=== PATIENT | male | born 1945 | race Caucasian/White ===

== ENCOUNTER 2023-03-13 05:01 | Outpatient (REF) | payer OTHER, SELFPAY ==
[2023-03-13 07:33] LABS: Creatinine Urine 157.35 mg/dL; Microalbum/Creatinine Ratio Ur 357.1 ug/mg cr (<30)
== END 2023-03-13 05:02 | disposition home or self-care (01) ==
LOC: HO.HSH2W 05:01
PROVIDERS: Visit Provider Internal Medicine
DX: E11.22 Type 2 diabetes mellitus with diabetic chronic kidney disease (principal); I12.9 Hypertensive chronic kidney disease with stage 1 through stage 4 chronic kidney disease, or unspecified chronic kidney disease; N18.30 Chronic kidney disease, stage 3 unspecified
CPT/HCPCS: 82043; 82570

== ENCOUNTER 2023-03-25 11:35 | Outpatient (AMB) | payer MEDICARE, MEDICAID, SELFPAY ==
--- NOTE | 2023-03-25 11:33 | A.OFFVIS_ITS ---
Intake Intake Visit Reasons: Urinary retention Intake Note: Patient presents today for a follow-up on Urinary Retention: Meds- Tamsulosin Allergies to Antibiotic- No Known Allergies Blood Thinner- None Clinical Account Specialist Required: No Accompanied by: Self / Same As Patient Allergies No Known Allergies Allergy (Verified 03/25/23 11:48) HPI HPI Comments History of Present Illness Details Immanuel is a 77 year old male new resident to [place] [facility], h/o Dementia, COPD, depression, with ponce catheter for urinary retention 11/2022. The catheter was changed here on 03/22/23 and he is on clamp system. Nursing state he complains when the valve is in the clamped position. Plan: Cont Flomax Voiding trial with [place] catheter [facility] Medical History (Updated 04/03/23 @ 11:04 by Melly Vickers MD) Cataract COVID-19 Microalbuminuria Chronic kidney disease, stage 3 History of failure to thrive syndrome Second degree AV block Behavior disturbance Pulmonary nodules COPD (chronic obstructive pulmonary disease) Gout Diabetes mellitus HTN (hypertension) Urinary retention Dementia Alzheimer disease Social History Alcohol intake: former Patient Tobacco Use Status: Former Tobacco user Review of Systems Const All systems reviewed & are unremarkable except as noted in HPI and below Reports no additional complaints Eyes Reports no additional complaints ENT Reports no additional complaints Card Denies dyspnea Resp Denies cough and Denies dyspnea GI Reports no additional complaints Musc Reports no additional complaints Skin/Breast Denies rash and Denies unusual bruising Neuro Reports no additional complaints Psych Reports no additional complaints Endo Reports no additional complaints Irvin/Lymph Reports no additional complaints Aller/Immun Reports no additional complaints Physical Exam Const General: healthy appearing, no acute distress and well developed Orientation/consciousness: patient oriented x3 HEENT Head: Yes normocephalic and Yes atraumatic Eyes Conjunctivae: conjunctivae normal Neck Neck: Yes normal visual inspection Chest Chest palpation & inspection: normal inspection of the chest Resp Effort & Inspection: normal respiratory effort Cardio Rate: regular rate GI Inspection: Yes normal to inspection Palpation (GI): Soft to palpation Other: ponce in place penile glans no breakdown noted Penis: normal penis Scrotum: scrotum normal Skin General skin exam: no rashes or lesions noted Neuro General: patient oriented x3 Extrem General: No pedal edema Psych Appearance: grossly normal Affect: normal affect Assessment & Plan Assessment & Plan (1) BPH loc w urin obs/LUTS: Code(s): N40.1 - Benign prostatic hyperplasia with lower urinary tract symptoms (2) Ponce catheter in place: Code(s): Z97.8 - Presence of other specified devices (3) Urinary retention: Code(s): R33.9 - Retention of urine, unspecified Coding Level of Care Code [id number] Fac initial, mod Diagnoses BPH loc w urin obs/LUTS N40.[address] Z97.8 Urinary retention R33.9
== END 2023-03-25 16:30 | disposition home or self-care (01) ==
LOC: HO.HUSV 11:35
PROVIDERS: Visit Provider Urology
DX: N40.1 Benign prostatic hyperplasia with lower urinary tract symptoms (principal); Z97.8 Presence of other specified devices; R33.9 Retention of urine, unspecified
CPT/HCPCS: 99305

== ENCOUNTER 2023-04-28 05:04 | Outpatient (REF) | payer MEDICARE, MEDICAID, SELFPAY ==
[2023-04-28 06:44] LABS: MANUAL DIFF FLAG NO
[2023-04-28 06:50] LABS: Basophils Percent Auto 0.6 % (0-2); Eosinophils Absolute Auto 0.2 X10*3/uL (0.0-0.4); Eosinophils Percent Auto 2.8 % (0-4); Hematocrit 31.5 % (42.0-52.0); Hemoglobin 9.9 g/dl (14.0-18.0); Imm Gran Abs Auto 0.12 X10*3/uL (0.00-0.03); Imm Gran Pct Auto 1.7 % (0.0-0.4); Lymphocytes Absolute Auto 1.3 X10*3/uL (1.2-4.9); Lymphocytes Percent Auto 18.6 % (20-40); Mean Corpuscular HGB Conc 31.4 g/dl (31.0-36.0); Mean Corpuscular Hemoglobin 27.7 pg (27.0-33.0); Mean Platelet Volume 10.3 fL (9.4-12.4); Monocytes Absolute Auto 0.6 X10*3/uL (0.1-1.2); Monocytes Percent Auto 8.8 % (2-11); Neutrophils Absolute Auto 4.8 x10*3/uL (2.0-8.3); Neutrophils Percent Auto 67.5 % (45-73); Platelet Count 210 X10*3/uL (160-400); Red Blood Count 3.58 X10*6/uL (4.60-5.80); Red Cell Distribution Width 15.4 % (11.0-16.0); White Blood Count 7.2 X10*3/uL (4.8-10.8)
[2023-04-28 07:13] LABS: Alanine Aminotransferase 9 U/L (0-40); Albumin Level 2.8 g/dL (3.5-5.0); Alkaline Phosphatase 88 U/L (39-117); Anion Gap 10 (12-20); Aspartate Amino Transferase 14 U/L (5-37); Bilirubin Total 0.4 mg/dL (0.0-1.0); Blood Urea Nitrogen 14 mg/dL (9-16); Calcium 8.7 mg/dL (8.4-10.2); Carbon Dioxide 28 mmol/L (22-29); Chloride 107 mmol/L (96-108); Estimated Glomerular Filt Rate > 60; Glucose Fasting 88 mg/dL (60-99); Potassium 3.6 mmol/L (3.3-5.1); Sodium 141 mmol/L (135-145); Total Protein 5.5 g/dL (6.5-8.0); Uric Acid 5.1 mg/dL (3.4-7.0)
[2023-04-28 07:28] LABS: Thyroid Stimulating Hormone 2.64 uIU/mL (0.32-4.0); Vitamin D 25-OH Total 21.5 ng/mL (>30)
[2023-04-28 07:30] LABS: Estimated Average Glucose 117 mg/dL; Hemoglobin A1c % 5.7 % (<6.0)
[2023-04-28 07:43] LABS: Folate 8.9 ng/mL (> or = 4.0); Vitamin B12 562 pg/mL (200-900)
[2023-04-28 12:52] LABS: Ferritin 158 ng/mL (20-250)
[2023-04-30 16:19] LABS: TS Negative Control Passed; TS Panel A 2; TS Panel B 0; TS Positive Control Passed; TSpotTB Negative (Negative)
== END 2023-04-28 05:05 | disposition home or self-care (01) ==
LOC: HO.HSH2W 05:04
PROVIDERS: Visit Provider Internal Medicine
DX: E11.22 Type 2 diabetes mellitus with diabetic chronic kidney disease (principal); I12.9 Hypertensive chronic kidney disease with stage 1 through stage 4 chronic kidney disease, or unspecified chronic kidney disease; D63.1 Anemia in chronic kidney disease; N18.30 Chronic kidney disease, stage 3 unspecified; F03.90 Unspecified dementia, unspecified severity, without behavioral disturbance, psychotic disturbance, mood disturbance, and anxiety; M10.9 Gout, unspecified
CPT/HCPCS: 36415; 80053; 82306; 82607; 82728; 82746; 83036; 84443; 84550; 85025; 86481

== ENCOUNTER 2023-05-04 05:01 | Outpatient (REF) | payer OTHER, SELFPAY | END 2023-05-04 05:02 | disposition home or self-care (01) | LOC: HO.HSH2W 05:01 | PROVIDERS: Visit Provider Internal Medicine | DX: Z13.89 Encounter for screening for other disorder (principal) ==

== ENCOUNTER 2023-05-29 05:21 | Outpatient (REF) | payer OTHER, SELFPAY | END 2023-05-29 05:22 | disposition home or self-care (01) | LOC: HO.HSH2W 05:21 | PROVIDERS: Visit Provider Internal Medicine | DX: Z13.89 Encounter for screening for other disorder (principal) ==

== ENCOUNTER 2023-06-25 04:55 | Outpatient (REF) | payer MEDICARE, MEDICAID, SELFPAY ==
[2023-06-25 06:03] LABS: Anion Gap 11 (12-20); Blood Urea Nitrogen 32 mg/dL (9-16); Calcium 9.3 mg/dL (8.4-10.2); Carbon Dioxide 26 mmol/L (22-29); Chloride 106 mmol/L (96-108); Estimated Glomerular Filt Rate 52; Glucose Fasting 93 mg/dL (60-99); Magnesium 2.1 mg/dL (1.6-2.6); Potassium 3.9 mmol/L (3.3-5.1); Sodium 139 mmol/L (135-145)
== END 2023-06-25 04:56 | disposition home or self-care (01) ==
LOC: HO.HSH2W 04:55
PROVIDERS: Visit Provider Internal Medicine
DX: I10 Essential (primary) hypertension (principal)
CPT/HCPCS: 36415; 80048; 83735

== ENCOUNTER 2023-07-01 05:35 | Outpatient (REF) | payer MEDICARE, MEDICAID, SELFPAY ==
[2023-07-01 07:05] LABS: Anion Gap 9 (12-20); Blood Urea Nitrogen 25 mg/dL (9-16); Calcium 8.9 mg/dL (8.4-10.2); Carbon Dioxide 27 mmol/L (22-29); Chloride 112 mmol/L (96-108); Estimated Glomerular Filt Rate 51; Glucose Fasting 108 mg/dL (60-99); Potassium 3.9 mmol/L (3.3-5.1); Sodium 144 mmol/L (135-145)
== END 2023-07-01 05:36 | disposition home or self-care (01) ==
LOC: HO.HSH2W 05:35
PROVIDERS: Visit Provider Internal Medicine
DX: I10 Essential (primary) hypertension (principal)
CPT/HCPCS: 36415; 80048

== ENCOUNTER 2023-07-14 05:12 | Outpatient (REF) | payer OTHER, SELFPAY ==
[2023-07-14 06:19] LABS: Anion Gap 11 (12-20); Blood Urea Nitrogen 22 mg/dL (9-16); Calcium 8.9 mg/dL (8.4-10.2); Carbon Dioxide 25 mmol/L (22-29); Chloride 110 mmol/L (96-108); Estimated Glomerular Filt Rate > 60; Glucose Fasting 100 mg/dL (60-99); Potassium 3.7 mmol/L (3.3-5.1); Sodium 142 mmol/L (135-145)
== END 2023-07-14 05:13 | disposition home or self-care (01) ==
LOC: HO.HSH2W 05:12
PROVIDERS: Visit Provider Internal Medicine
DX: I10 Essential (primary) hypertension (principal)
CPT/HCPCS: 36415; 80048

== ENCOUNTER 2023-08-05 07:05 | Outpatient (REF) | payer MEDICARE, MEDICAID, SELFPAY ==
[2023-08-05 07:30] LABS: Uric Acid 6.1 mg/dL (3.4-7.0)
== END 2023-08-05 07:06 | disposition home or self-care (01) ==
LOC: HO.HSH2W 07:05
PROVIDERS: Visit Provider Internal Medicine
DX: M79.641 Pain in right hand (principal)
CPT/HCPCS: 36415; 84550

== ENCOUNTER 2023-11-05 07:00 | Outpatient (REF) | payer MEDICARE, MEDICAID, SELFPAY ==
[2023-11-05 07:06] LABS: MANUAL DIFF FLAG NO
[2023-11-05 08:05] LABS: Basophils Percent Auto 0.5 % (0-2); Eosinophils Absolute Auto 0.1 X10*3/uL (0.0-0.4); Hematocrit 35.2 % (42.0-52.0); Hemoglobin 11.2 g/dl (14.0-18.0); Imm Gran Abs Auto 0.02 X10*3/uL (0.00-0.03); Imm Gran Pct Auto 0.4 % (0.0-0.4); Immature Retic Fraction 14.5 % (2.3-13.4); Lymphocytes Absolute Auto 1.2 X10*3/uL (1.2-4.9); Lymphocytes Percent Auto 21.6 % (20-40); Mean Corpuscular HGB Conc 31.8 g/dl (31.0-36.0); Mean Corpuscular Hemoglobin 29.3 pg (27.0-33.0); Mean Corpuscular Volume 92.1 fL (80.0-98.0); Mean Platelet Volume 11.1 fL (9.4-12.4); Monocytes Absolute Auto 0.6 X10*3/uL (0.1-1.2); Monocytes Percent Auto 10.4 % (2-11); Neutrophils Absolute Auto 3.6 x10*3/uL (2.0-8.3); Neutrophils Percent Auto 65.1 % (45-73); Platelet Count 168 X10*3/uL (160-400); Red Blood Count 3.82 X10*6/uL (4.60-5.80); Red Cell Distribution Width 15.7 % (11.0-16.0); Retic HGB Equivalent 31.8 pg (30.0-35.0); Reticulocyte Percent 1.8 % (0.5-1.8); White Blood Count 5.5 X10*3/uL (4.8-10.8)
[2023-11-05 08:16] LABS: Alanine Aminotransferase 12 U/L (0-40); Albumin Level 3.5 g/dL (3.5-5.0); Alkaline Phosphatase 87 U/L (39-117); Anion Gap 13 (12-20); Aspartate Amino Transferase 15 U/L (5-37); Bilirubin Total 0.3 mg/dL (0.0-1.0); Blood Urea Nitrogen 27 mg/dL (9-16); Calcium 9.3 mg/dL (8.4-10.2); Carbon Dioxide 27 mmol/L (22-29); Chloride 106 mmol/L (96-108); Estimated Glomerular Filt Rate 51; Glucose Random 94 mg/dL (60-115); Iron 54 mcg/dL (45-160); Magnesium 1.9 mg/dL (1.6-2.6); Percent Iron Saturation 23 % (15-50); Phosphorus 2.7 mg/dL (2.7-4.5); Potassium 4.7 mmol/L (3.3-5.1); Sodium 141 mmol/L (135-145); Total Iron Binding Capacity 239 mcg/dL (228-428); Total Protein 6.1 g/dL (6.5-8.0); Unsaturated Iron Binding 185 ug/dL
[2023-11-05 08:22] LABS: Estimated Average Glucose 117 mg/dL; Hemoglobin A1c % 5.7 % (<6.0)
[2023-11-05 08:35] LABS: Uric Acid 5.3 mg/dL (3.4-7.0)
[2023-11-05 08:37] LABS: Ferritin 67 ng/mL (20-250); Vitamin D 25-OH Total 44.4 ng/mL (>30)
== END 2023-11-05 07:01 | disposition home or self-care (01) ==
LOC: HO.HSH2W 07:00
PROVIDERS: Visit Provider Internal Medicine
DX: N18.9 Chronic kidney disease, unspecified (principal); D63.1 Anemia in chronic kidney disease; M10.9 Gout, unspecified; Z13.1 Encounter for screening for diabetes mellitus; Z13.21 Encounter for screening for nutritional disorder
CPT/HCPCS: 36415; 80053; 82306; 82728; 83036; 83540; 83735; 84100; 84550; 85025; 85045

== ENCOUNTER 2023-11-17 14:26 | Outpatient (REF) | payer MEDICARE, MEDICAID, SELFPAY ==
[2023-11-17 14:43] LABS: Anion Gap 14 (12-20); Blood Urea Nitrogen 27 mg/dL (9-16); Calcium 9.9 mg/dL (8.4-10.2); Carbon Dioxide 27 mmol/L (22-29); Chloride 108 mmol/L (96-108); Estimated Glomerular Filt Rate 52; Glucose Random 119 mg/dL (60-115); Sodium 144 mmol/L (135-145)
[2023-11-17 14:51] LABS: Troponin-I High Sensitivity 10.5 ng/L (<3.5-35.0)
== END 2023-11-17 14:27 | disposition home or self-care (01) ==
LOC: HO.HSH2W 14:26
PROVIDERS: Visit Provider Internal Medicine
DX: R00.1 Bradycardia, unspecified (principal)
CPT/HCPCS: 36415; 80048; 84484

== ENCOUNTER 2024-03-09 06:08 | Outpatient (REF) | payer MEDICARE, MEDICAID, SELFPAY ==
[2024-03-09 06:11] LABS: MANUAL DIFF FLAG NO
[2024-03-09 06:39] LABS: Basophils Percent Auto 0.6 % (0-2); Eosinophils Absolute Auto 0.1 X10*3/uL (0.0-0.4); Eosinophils Percent Auto 2.4 % (0-4); Hematocrit 35.7 % (42.0-52.0); Hemoglobin 11.5 g/dl (14.0-18.0); Imm Gran Abs Auto 0.04 X10*3/uL (0.00-0.03); Imm Gran Pct Auto 0.9 % (0.0-0.4); Lymphocytes Absolute Auto 1.4 X10*3/uL (1.2-4.9); Mean Corpuscular HGB Conc 32.2 g/dl (31.0-36.0); Mean Corpuscular Hemoglobin 29.6 pg (27.0-33.0); Mean Corpuscular Volume 91.8 fL (80.0-98.0); Mean Platelet Volume 11.1 fL (9.4-12.4); Monocytes Absolute Auto 0.5 X10*3/uL (0.1-1.2); Monocytes Percent Auto 10.3 % (2-11); Neutrophils Absolute Auto 2.7 x10*3/uL (2.0-8.3); Neutrophils Percent Auto 56.8 % (45-73); Platelet Count 173 X10*3/uL (160-400); Red Blood Count 3.89 X10*6/uL (4.60-5.80); Red Cell Distribution Width 15.1 % (11.0-16.0); White Blood Count 4.7 X10*3/uL (4.8-10.8)
[2024-03-09 07:02] LABS: Estimated Average Glucose 117 mg/dL; Hemoglobin A1C 114.5108 umol/L; Hemoglobin A1c % 5.7 % (<6.0); Total Hemoglobin (HGBA1C) 2934.3589 umol/L
[2024-03-09 07:10] LABS: Alanine Aminotransferase 9 U/L (0-40); Albumin Level 3.4 g/dL (3.5-5.0); Alkaline Phosphatase 78 U/L (39-117); Anion Gap 11 (12-20); Aspartate Amino Transferase 12 U/L (5-37); Bilirubin Total 0.4 mg/dL (0.0-1.0); Blood Urea Nitrogen 24 mg/dL (9-16); Calcium 9.1 mg/dL (8.4-10.2); Carbon Dioxide 28 mmol/L (22-29); Chloride 107 mmol/L (96-108); Estimated Glomerular Filt Rate 47; Glucose Fasting 98 mg/dL (60-99); Iron 66 mcg/dL (45-160); Percent Iron Saturation 28 % (15-50); Potassium 4.5 mmol/L (3.3-5.1); Sodium 141 mmol/L (135-145); Total Iron Binding Capacity 236 mcg/dL (228-428); Total Protein 5.7 g/dL (6.5-8.0); Unsaturated Iron Binding 170 ug/dL
[2024-03-09 07:15] LABS: Ferritin 71 ng/mL (20-250); Thyroid Stimulating Hormone 2.21 uIU/mL (0.32-4.0)
[2024-03-09 07:37] LABS: Folate 11.5 ng/mL (> or = 4.0); Vitamin B12 306 pg/mL (200-900)
== END 2024-03-09 06:09 | disposition home or self-care (01) ==
LOC: HO.HSH2W 06:08
PROVIDERS: Visit Provider Internal Medicine
DX: Z13.1 Encounter for screening for diabetes mellitus (principal); I12.9 Hypertensive chronic kidney disease with stage 1 through stage 4 chronic kidney disease, or unspecified chronic kidney disease; N18.9 Chronic kidney disease, unspecified; D64.9 Anemia, unspecified
CPT/HCPCS: 36415; 80053; 82607; 82728; 82746; 83036; 83540; 84443; 85025

== ENCOUNTER 2024-09-09 07:49 | Outpatient (REF) | payer MEDICARE, MEDICAID, SELFPAY ==
[2024-09-09 07:53] LABS: MANUAL DIFF FLAG NO
--- OUTSIDE RECORDS SUMMARY | 2024-09-09 07:54 | XMS_ITS | Clinical Summary ---
Author Organization [employer] Address [address] [place] [address] Care Team Providers Care Recruiting Internship Name Role Phone Unavailable Primary Care Provider Unavailabl e Allergies No known active allergies Medications albuterol 108 (90 Base) MCG/ACT inhaler INHALE 1 PUFF BY MOUTH EVERY 4 HOURS NEEDED FOR SHORTNESS OF BREATH 3 Active docusate sodium (Colace) 100 MG capsule Take 100 mg by mouth 2 times daily. Active cloNIDine (Catapres) 0.1 MG tablet Take by mouth 2 times daily. Active acetaminophen (Tylenol) 325 MG tablet Take by mouth. Active bisacodyl (Fleet Bisacodyl) 10 MG/30ML enema Insert 10 mg into the rectum 1 (one) time. Active sodium phosphate (Fleet) 3.5-9.5 GM/59ML enema Insert into the rectum. Active LORazepam (Ativan) 0.5 MG tablet Take by mouth. Active magnesium oxide (Mag-Ox) 400 mg tablet 400 mg in the morning. Active morphine 10 MG/5ML solution Take 5 mg by mouth. Active amLODIPine (Norvasc) 2.5 MG tablet Take 2.5 mg by mouth in the morning. Active alendronate-cholec alciferol (Fosamax Plus D) 70-5600 MG-UNIT tablet Take 1 tablet by mouth 1 (one) time each day. Take in the morning with a full glass of water, on an empty stomach, and do not take anything else by mouth or lie down for the next 30 min. Active mirtazapine (Remeron Vanessa-Tab) 15 MG disintegrating tablet Take 15 mg by mouth at bedtime. 1/2 tablet by mouth in evening Active QUEtiapine (SEROquel) 25 MG tablet Take 25 mg by mouth 2 times daily. Active tamsulosin (Flomax) 0.4 MG 24 hr capsule Take 0.4 mg by mouth before evening meal. Active polyethylene glycol, PEG, 3350 (Miralax) 17 g packet Take 17 g by mouth if needed each day. Active loperamide (Imodium A-D) 2 MG tablet Take by mouth if needed for diarrhea. Active Active Problems No known active problems Social History Tobacco Use Types Packs/Day Years Used Date Smoking Tobacco: Unknown Tobacco Cessation:Counseling Given: Not Answered Sex and Gender Information Value Date Recorded Sex Assigned at Male 03/16/2023 3:50 PM EDT Legal Sex Male 3:47 PM EDT Gender Identity Male 03/16/2023 3:50 PM EDT Sexual Orientation Straight 03/16/2023 3: 50 PM EDT Plan of Treatment Health Maintenance Due Date Last Done Comments Anal Pap 1946 Dental Prophylaxis 1946 Dental X-Ray: Bitewings 1946 Dental X-Ray: Full Mouth 1946 Depression Screening 1946 Lipid Panel 1946 SDOH Screening 1946 Alcohol/Substance Use Screening 1958 Hepatitis C Screening 1964 RSV Patients and Patients Aged 60 years or older (1 - 1-dose 75+ series) 2021 COVID-19 Vaccine ( season) 2024 04/01/2022, 05/04/2021, 08/03/2020, Additional history exists Influenza Vaccine (#1) 2024 , 02/22/2021, 03/01/2019, Additional history exists Dental Oral Exam 04/02/2024 09/30/2023 DTaP/Tdap/Td Vaccines (3 - Td or Tdap) 09/08/2024 09/08/2014, 12/10/2011 Tobacco Screening 09/29/2024 09/30/2023 Hepatitis A Vaccines Completed 08/02/2012, 01/13/2012, 12/10/2011, Additional history exists Hepatitis B Vaccines Completed 08/02/2012, 01/13/2012, 12/10/2011, Additional history exists Zoster Vaccines Completed 05/04/2018, 02/22, 10/18/2014, Additional history exists Pneumococcal Vaccine: 50+ Years Completed 03/01/2019, 12/20/2018, 03/30/2018, Additional history exists HIB Vaccines Aged Out No longer eligi ble based on patient's age to complete this topic HPV Vaccines Aged Out No longer eligi ble based on patient's age to complete this topic IPV Vaccines Aged Out No longer eligi ble based on patient's age to complete this topic Meningococcal Vaccine Aged Out No cait rere eligible based on patient's age to complete this topic RSV under 20 months Aged Out No longe r eligible based on patient's age to complete this topic Rotavirus Vaccines Aged Out No longer eligible based on patient's age to complete this topic Procedures Procedure Name Priority Date/Time Associated Diagnosis Comments PERIODIC ORAL EVALUATION - ESTABLISHED PATIENT Routine 09/30/2023 9:00 AM EDT from Last 3 Months or Most Recently Relevant to Health Maintenance [facility]
--- OUTSIDE RECORDS SUMMARY | 2024-09-09 07:54 | XMS_ITS | Continuity of Care Document ---
Author Organization [facility] Address [address] [address] Phone Care Team Providers Care Plunger Machine Operator Name Role Phone Graciela EDOUARD, Alessandra Unavailable [...] Location Reason(s) For Visit Diagnoses Date Provider [facility], [facility], [place], [place], [id number], [place] tel:[phone] Streetman No Information 3 Graciela Aparicio. [address], [place], [place], [id number], . tel:[phone] [facility], [facility], [place], [place], [id number], [place] tel:[phone] Beulah OSV (chief complaint)osv (chief complaint) Major depressive disorder, remission status unspecified, unspecified whether recurrentComfort measures only statusChronic obstructive pulmonary disease, unspecified COPD typeTobacco abuse 3 Mulugeta Love. [address], [place], [id number], [place]. tel:[phone] [facility], [address], [id number], [place] tel:[phone] Beulah Moderate protein-calorie malnutrition 3 Palaciosmelita Bashirndy. [address] [place], [address]. tel:[phone] [facility], [facility] [address] [place] [address], [id number], [place] tel:[phone] Beulah OSV (chief complaint) Protein-calorie malnutrition, moderateComfort measures only status 3 Mulugeta Love. [address], [place], [id number], [place]. tel:[phone] [facility], [facility] [address] [place] [address], [id number], [place] tel:[phone] Beulah Encounter for rehabilitation evaluation Jan-2 3 Ameena Paulson. [address] [place], [address]. tel:[phone] [facility], [facility] [address] [place] [address], [id number], [place] tel:[phone] Beulah Encounter for rehabilitation evaluation 0 3 Az Love. 108 [facility], [place], [address]. tel:[phone] [facility], [address] [facility] [address], [place], [place], [id number], [place] tel:[phone] Streetman Encounter for rehabilitation evaluation 3 Casper Maynardah Beth. [address] [facility] [place], [place], [id number]. tel:[phone] [facility], [address] [facility] [facility], [place], [place], [id number], [place] tel:[phone] Streetman No Information 3 No Information [facility], 1 [facility] [address], [place], [place], [id number], [place] tel:[phone] Streetman Abnormal weight lossEncounter for nutritional assessmentModerate protein-calorie malnutritionUnderwei t 3 Normile Denice. [address] [place], [place], [id number], [place]. tel:[phone] [facility], [facility] [address] [place] [address], [id number], [place] tel:[phone] Streetman Encounter for rehabilitation evaluation 3 Poncho Agee. [address] [facility] [place] [place], [id number], [place]. tel:[phone] [facility], [address] [facility] [facility], [place], [place], [id number], [place] tel:[phone] [facility] f/u (chief complaint) Benign prostatic hyperplasia with urinary obstructionOther obstructive and reflux uropathy 3 Mulugeta Love. [address], [place], [id number], [place]. tel:[phone] [facility], [address] [facility], [place], [place], [id number], [place] tel:[phone] [facility] f/u (chief complaint) Urinary retentionChronic obstructive pulmonary disease, unspecified COPD typeTobacco abuse 3 Mulugeta Love. [address], [place], [id number], . tel:[phone] [facility], [facility] [address] [place] [address], [id number], [place] tel:[phone] [facility] f/u (chief complaint) Depression, major, recurrent, mildDementia associated with other underlying disease with behavioral disturbanceAlcohol-i nduced major neurocognitive disorder, amnestic confabulatory type, with moderate or severe use disorder 3 Mulugeta Love. [address], [place], [id number], [place]. tel:[phone] [facility], [address], [id number], [place] tel:[phone] [facility] f/u (chief complaint) Depression, major, recurrent, mildProtein-calorie malnutrition, moderateComfort measures only status 3 Mulugeta Love. [address], [place], [id number], [place]. tel:[phone] [facility], [address], [id number], [place] tel:[phone] Beulah SNF admission (chief complaint) ObtundedComfort measures only status 3 Mulugeta Love. [address], [place], [id number], [place]. tel:[phone] [facility], [facility] [address] [place] [address], [id number], [place] tel:[phone] Streetman Self neglect (chief complaint) Self neglectParanoiaPassi ve suicidal ideations 3 No Information [facility], [facility] [address] [place] [address], [id number], [place] tel:[phone] Streetman Encounter for general adult medical examination w/o abnormal findings 3 Cysz Eladia. [address], [place], [id number], [place]. tel:[phone] [facility], [address], [place], [place], [id number], [place] tel:[phone] Streetman Difficulty in walking, not elsewhere classifiedEncounter for rehabilitation evaluation 3 Rema Myles. [address] [facility], [place], [address]. tel:[phone] [facility], [address] [facility], [place], [place], [id number], [place] tel:[phone] Streetman Encounter for rehabilitation evaluation 3 Willie Santana. [address] [facility], [place], [place], [id number], [place]. tel:[phone] [facility], [address], [place], [place], [id number], [place] tel:[phone] Streetman Diabetic cataractNoncomplianc e w/medication treatment due to intermit use of medicationChronic post-traumatic stress disorder (PTSD)Depression, major, recurrent, mildHyperlipidemia LDL goal <70Type 2 diabetes mellitus with diabetic peripheral angiopathy without gangrene, unspecified whether termite control technician insulin useProtein-calorie malnutrition, moderateHypertensive renal disease, stage [...] current use of insulin, unspecified CKD stage 3 Cysz Eladia. [address], [place], [place], [id number], [place]. tel:[phone] [facility], [address], [place], [place], [id number], [place] tel:[phone] Streetman No Information Apr- 2 Cysz Eladia. [address], [place], [id number], [place]. tel:[phone] [facility], 1 [facility], [place], [place], [id number], [place] tel:[phone] Streetman Hypertensive chronic kidney disease with stage 1 through stage 4 chronic kidney disease, or unspecified chronic kidney disease Jan-2 2 Cysz Eladia. [address], [place], [place], [id number], [place]. tel:[phone] [facility], 1 [facility], [place], [place], [id number], [place] tel:[phone] Streetman Encounter for nutritional assessmentAbnormal weight lossModerate protein-calorie malnutrition Jan- 2 Patricia Sally. [address], [place], [address]. tel:[phone] [facility], 1 [facility], [place], [place], [id number], [place] tel:[phone] Streetman BIANNUAL (chief complaint) Noncompliance w/medication treatment due to intermit use of medicationAdvanced care planning/counseling discussionType 2 diabetes mellitus with chronic kidney disease, without long-term current use of insulin, unspecified CKD stageType 2 diabetes mellitus with diabetic peripheral angiopathy without gangrene, unspecified whether termite control technician insulin useProtein-calorie malnutrition, moderateDiabetic cataractDiarrhea, unspecified typeHypertensive [...] w/o abnormal findingsHyperlipidem ia LDL goal <70 Sep-2 2 Cysz Eladia. [address], [place], [place], [id number], [place]. tel:[phone] [facility], [address] [facility] [facility], [place], [place], [id number], [place] tel:[phone] Streetman COVID swab (chief complaint) Encounter for screening for COVID-19 Galo- 2 Cysz Eladia. [address] [facility] [place], [id number], [place]. tel:[phone] [facility], 1 [facility] [address], [place], [place], [id number], [place] tel:[phone] Streetman Encounter for rehabilitation evaluationDifficulty in walking, not elsewhere classifiedMuscle weakness (generalized) Aug-0 2 Casper León. [address] [facility] [place], [place], [id number]. tel:[phone] [facility], 1 [facility] [address], [place], [place], [address], [place] tel:[phone] Streetman Encounter for rehabilitation evaluation Aug-0 2 Rema Myles. 101 [facility], [place], [address]. tel:[phone] [facility], 1 [facility] [address], [place], [place], [id number], [place] tel:[phone] Streetman Encounter for nutritional assessment 2 Normile Denice. [address] [facility] [place], [id number], [place]. tel:[phone] [facility], [address] [facility] [address] [facility], [place], [place], [id number], [place] tel:[phone] Streetman biannual (chief complaint)med rec/semi (chief complaint) History of fallingNoncompliance w/medication treatment due to intermit use of medicationAdvanced care planning/counseling discussionType 2 diabetes mellitus with chronic kidney disease, without long-term current use of insulin, unspecified CKD stageType 2 diabetes mellitus with diabetic peripheral angiopathy without gangrene, unspecified whether termite control technician insulin useDiabetic cataractDiarrhea, unspecified typeHypertensive chronic kidney [...] COPD typeTobacco abuse 2 Cysz Eladia. [address] [place], [place], [id number], [place]. tel:[phone] [facility], [address] [address], [place], [place], [id number], [place] tel:[phone] Streetman No Information 2 Casper Maynardah Beth. 101 [facility] [place], [place], [id number]. tel:[phone] [facility], 1 [facility], [place], [place], [id number], [place] tel:[phone] Streetman No Information 2 Cysz Eladia. [address], [place], [address], [place]. tel:[phone] [facility], 1 [facility] [address], [place], [place], [id number], [place] tel:[phone] Streetman Diarrhea, unspecified type 1 Cysz Eladia. [address] [facility] [place], [address], [place]. tel:[phone] [facility], 1 [facility], [place], [place], [id number], [place] tel:[phone] Streetman f/u; diarrhea (chief complaint) Dementia in other diseases classified elsewhere with behavioral disturbanceDiarrhea, unspecified typeStage 3a chronic kidney diseaseChronic obstructive pulmonary disease, unspecified COPD typeHypertensive chronic kidney disease with stage 1 through stage 4 chronic kidney disease, or unspecified chronic kidney diseaseAlcohol-induc ed major neurocognitive disorder, amnestic confabulatory type, with moderate or severe use disorder 1 Cysevert Myersa. [address], [place], [id number], [place]. tel:[phone] [facility], [address] [facility], [place], [place], [id number], [place] tel:[phone] Streetman ALEXANDER (chief complaint) History of fallingNoncompliance w/medication [...] disturbanceModerate obstructive sleep apneaOnychomycosisGa it instabilityTobacco abuse Jan- 1 Galen Linares. [address] [place], [address], [place]. tel:[phone] [facility], 1 [facility] [address], [place], [place], [id number], [place] tel:[phone] Streetman Difficulty in walking, not elsewhere classified 1 Rema Bueno. [address], [place], [address]. tel:[phone] [facility], 1 [facility] [address], [place], [place], [address], [place] tel:[phone] Streetman No Information 1 No Information [facility], [address] [facility], [place], [place], [id number], [place] tel:[phone] Streetman No Information 1 No Information [facility], [address] [facility], [place], [place], [id number], [place] tel:[phone] Streetman advanced care planning (chief complaint) Advanced care planning/counseling discussion 1 Cysz Eladia. [address] [facility] [place], [id number], [place]. tel:[phone] [facility], [address] [facility] [facility], [place], [place], [id number], [place] tel:[phone] Streetman Type 2 diabetes mellitus with chronic kidney disease, without long-term current use of insulin, unspecified CKD stage 1 Cysz Eladia. [address], [place], [address], [place]. tel:[phone] [facility], 1 [facility] [address], [place], [place], [address], [place] tel:[phone] Streetman Encounter for rehabilitation evaluation 1 Isaac Cyndie. [address], [place], [id number], [place]. tel:[phone] [facility], [address] [facility] [address] [facility], [place], [place], [address], [place] tel:[phone] Streetman Encounter for rehabilitation evaluation 1 Theroux Sandra. [address] [facility] [place], [address]. tel:[phone] [facility], [address], [place], [place], [id number], [place] tel:[phone] Streetman biannual (chief complaint) Noncompliance w/medication treatment due to intermit use of medicationAcquired absence of all teethDiabetic cataractTobacco abuseHistory of fallingOnychomycosis Tinea pedis of both feetType 2 diabetes mellitus with chronic kidney disease, without long-term current use of insulin, unspecified CKD stageType 2 diabetes mellitus with diabetic peripheral angiopathy without gangrene, unspecified whether termite control technician insulin useHypovitaminosis DHypertensive chronic kidney disease with [...] kidney disease 1 Johnny Montilla. [address], [place], [id number], [place]. 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 [address], [place], [place], [id number], [place]. 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 [address] [facility] [address], [place], [place], [id number], [place]. tel:[phone] [facility], [address] [address], [place], [place], [address], [place] tel:[phone] Streetman Encounter for nutritional assessment Sep-0 0 Patricia Zavala. [address] [place], [address]. tel:[phone] [facility], [address] [address], [place], [place], [address], [place] tel:[phone] Streetman No Information Sep-0 0 Iris Jackson. [address] [place], [place], [id number]. tel:[phone] [facility], [address] [address], [place], [place], [id number], [place] tel:[phone] Streetman biannual (chief complaint) Noncompliance w/medication treatment due [...] diabetic peripheral angiopathy without gangrene, unspecified whether termite control technician insulin use Sep-0 0 Cysz Eladia. [address] [place], [place], [address], [place]. tel:[phone] [facility], [address] [facility], [place], [place], [id number], [place] tel:[phone] Streetman Type 2 diabetes mellitus w diabetic chronic kidney diseaseTinea unguium 0 Cysz Eladia. [address] [facility] [address], [place], [place], [id number], [place]. tel:[phone] [facility], 1 [facility] [address], [place], [place], [address], [place] tel:[phone] Streetman Encounter for nutritional assessment 0 Patricia Sally. [address] [facility], [place], [address]. tel:[phone] [facility], 1 [facility], [place], [place], [address], [place] tel:[phone] Streetman Annual (chief complaint) Adult general medical examType [...] of both feet 0 Iris Jackson. [address] [place], [place], [address]. tel:[phone] [facility], 1 [facility], [place], [place], [id number], [place] tel:[phone] Streetman Adult general medical examVitamin D deficiency Jul- 0 Iris Jackson. [address], [place], [place], [address]. tel:[phone] [facility], [address], [place], [place], [id number], [place] tel:[phone] Streetman Obesity, unspecified 9 Patricia Zavala. [address], [place], [address]. tel:[phone] [facility], [address] [facility], [place], [place], [address], [place] tel:[phone] Streetman Semi Annual (chief complaint) Type 2 diabetes [...] chronic kidney disease 9 Iris Jackson. [address], [place], [place], [id number]. tel:[phone] [facility], [address] [facility] [facility], [place], [place], [address], [place] tel:[phone] Streetman No Information 9 No Information [facility], 1 [facility] [address], [place], [place], [id number], [place] tel:[phone] Streetman Chronic obstructive pulmonary disease, unspecified 9 No Information [facility], [address] [facility], [place], [place], [id number], [place] tel:[phone] Streetman Chronic obstructive pulmonary disease, unspecified Apr-1 2-201 9 Rema Bueno. [address] [facility] [address], [place], [address]. tel:[phone] [facility], [facility], [place], [place], [address], [place] tel:[phone] Streetman Abnormal weight loss Apr-1 0-201 9 Patricia Zavala. [address] [facility], [place], [address]. tel:[phone] [facility], 1 [facility], [place], [place], [id number], [place] tel:[phone] Streetman Annual (chief complaint) Type 2 diabetes mellitus with diabetic chronic kidney diseaseObstructive sleep apnea (adult) (pediatric)Major depressive disorder, recurrent, unspecifiedObesity, unspecifiedAlcohol dependence with alcohol-induced persisting dementiaTinea unguiumVitamin D deficiency, unspecifiedProteinur ia, unspecifiedUnspecifi ed mental disorder due to known physiological conditionUnspecified cataractRepeated fallsBenign prostatic hyperplasia without lower urinary tract symptomsTinea pedis Apr-0 9-201 9 Iris Jackson. [address] [facility] [place], [place], [id number]. tel:[phone] [facility], [address] [address], [place], [place], [address], [place] tel:[phone] Streetman No Information Jul-2 9 Casper León. [address] [facility] [place], [place], [address]. tel:[phone] [facility], [address] [address], [place], [place], [id number], [place] tel:[phone] Streetman No Information 0 8 No Information [facility], [facility], [place], [place], [id number], [place] tel:[phone] Streetman Annual (chief complaint) Post-traumatic stress disorder, chronicObstructive sleep apnea (adult) (pediatric)Repeated fallsUnspecified cataractUnsteadiness on feet Sep-2 0-201 8 Iris Jackson. [address] [place], [place], [address]. tel:[phone] [facility], [address], [place], [place], [id number], [place] tel:[phone] Streetman No Information Aug-1 0-201 8 Patricia Zavala. [address], [place], [address]. tel:[phone] [facility], [address] [facility], [place], [place], [id number], [place] tel:[phone] Streetman Chronic obstructive pulmonary disease, unspecified Apr-0 5-201 8 Jordy Love. [address], [place], [address]. tel:[phone] [facility], [address] [facility] [address] [facility], [place], [place], [address], [place] tel:[phone] Streetman Annual (chief complaint) Unspecified cataractObstructive sleep apnea (adult) (pediatric) Apr-0 3-201 8 Iris Jackson. [address] [place], [place], [address]. tel:[phone] [facility], [address] [facility] [address] [facility], [place], [place], [id number], [place] tel:[phone] Streetman No Information Jul- 8- 8 Casper León. [address] [place], [place], [address]. tel:[phone] [facility], 1 [facility] [address], [place], [place], [id number], [place] tel:[phone] Streetman Home visit (chief complaint) No Information 2 6-201 7 No Information [facility], 1 [facility] [address], [place], [place], [address], [place] tel:[phone] Streetman Annual (chief complaint) No Information Jan-2 7 Iris Jackson. [address], [place], [place], [address]. tel:[phone] [facility], 1 [facility] [address], [place], [place], [id number], [place] tel:[phone] Streetman No Information 7 No Information [facility], 1 [facility], [place], [place], [address], [place] tel:[phone] Streetman Cognitive Issues (chief complaint) Impacted cerumen, bilateralNicotine dependence, cigarettes, uncomplicated Galo- 7 Iris Jackson. [address], [place], [place], [address]. tel:[phone] [facility], [facility], [place], [place], [address], [place] tel:[phone] Streetman No Information Aug-2 7 Philip Henson. [address], [place], [place], [id number]. tel:[phone] [facility], 1 [facility], [place], [place], [address], [place] tel:[phone] Streetman No Information 0 7 Giorgio Jaimes. [address] [place], [place], [address]. tel:[phone] [facility], 1 [facility], [place], [address], [place] tel:[phone] Streetman Annual (chief complaint) Unspecified osteoarthritis, unspecified siteOther abnormalities of gait and mobilityAbnormal weight lossChronic viral hep CCataractHyperlipide miaAlbuminuriaEncoun ter for general adult medical exam w abnormal findings Aug-0 7 No Information [facility], 1 [facility] [address], [place], [place], [id number], [place] tel:[phone] [facility] No Information 6 No Information [facility], [address] [facility] [address], [place], [place], [id number], [place] tel:[phone] [place] Semiannual (chief complaint) Other abnormalities of gait and mobilityEncounter for general adult medical exam w abnormal findings 6 No Information [facility], 1 [facility], [place], [place], [id number], [place] tel:[phone] [place] chronic conditions (chief complaint)f/u resp status (chief complaint) No Information 6 No Information [facility], 1 [facility], [place], [place], [id number], [place] tel:[phone] [place] COPD,wt loss, poor adherence to follow up (chief complaint) No Information 6 No Information [facility], 1 [facility], [place], [place], [id number], [place] tel:[phone] [place] No Information 6 Casper León. [address] [facility] [place], [place], [id number]. tel:[phone] [facility], 1 [facility], [place], [place], [id number], [place] tel:[phone] [place] No Information 6 Despres Mala. [address] [place], [address]. tel:[phone] [facility], [address] [facility] [address], [place], [place], [id number], [place] tel:[phone] [place] Annual (chief complaint) Unspecified cataractEncounter for general adult medical exam w abnormal findings Jul-3 0- 6 No Information [facility], 1 [facility] [address] [place] [address], [id number], [place] tel:[phone] [place] general f/u (chief complaint) Complete loss of teeth, unspecified cause, unspecified classUnspecified cataractEncounter for general adult medical exam w abnormal findings 6 No Information [facility], [address], [place], [place], [id number], [place] tel:[phone] [place] No Information 5 Despres Mala. [address] [place], [address]. tel:[phone] [facility], [address], [place], [place], [id number], [place] tel:[phone] [place] Tinea pedis 5 No Information [facility], [address] [facility] [facility], [place], [place], [id number], [place] tel:[phone] [place] No Information 5 Despres Mala. [address] [facility], [place], [address]. tel:[phone] [facility], [address], [place], [place], [id number], [place] tel:[phone] [place] F/U multiple medical issues (chief complaint) Other abnormalities of gait and mobilityUnspecified cataract Feb- 5 No Information [facility], [address], [place], [place], [id number], [place] tel:[phone] [place] Follow up HTN, CKD, DM (chief complaint) No Information 0 5 No Information [facility], [address], [place], [place], [id number], [place] tel:[phone] [place] Semi annual, chronic medical conditions (chief complaint) Dermatophytosis of footTobacco use disorderContact dermatitis and other eczema, unspecified causeUnspecified sleep apneaUnspecified cataractRoutine Medical Exam Jan-2 5 No Information [facility], [address] [facility], [place], [place], [id number], [place] tel:[phone] [place] COPD (chief complaint)Hyp ertension (follow up) (chief complaint) No Information 5 No Information [facility], [address] [facility], [place], [place], [id number], [place] tel:[phone] [place] Follow Up of hypertension (chief complaint)Fol low Up of depression (chief complaint)Fol low up medical conditions (chief complaint) Dyspnea No Information [facility], 1 [facility], [place], [place], [id number], [place]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 if he is taking his inhalers correctly. tax attorney to go to the home in the next few weeks to perform home evaluation/med reconciliation - reviewed with nephew. 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 Copy of this was not available in the system but will be reviewed in future. Nephbill Matthew indicates that Afia continues to be [...] nephew reports will be seeing podiatry at [place] in near future Colonoscopy - nephew reports [...] 07/2019; HCP has been invoked; finished 10th gradeDiet - nephew reports that ppt could [...] The nephew reports they were at the [facility] in June-he has brought in copies of lab work performed. Mr Prasad lives in [facility] housing in [facility]. He enrolled with [facility] in August of 2014No reported ED visits, hospitalizations or falls in the past 6 months.Seen at the [place] 07/19/[address] [facility] Podiatry 05/13/2019Immunizations:Influenza vaccine was administered 03/01/2019Pneumococcal Series is completeTdap was administered Zoster administered 10/18/2014Health care proxy completed 05/15/2017 lists Afia Moncada as his primary healthcare agent The HCP was activated 05/22/2017[place] [employer] document dated 05/15/2017 indicates preferences for DNR/DNI, [...] housing which is supportive. He enrolled with [facility] in August of 2014. Mr. Prasad is also seen by [place] providers in [place], [place].Over the past 6 months the ppt has not needed to be seen at the ED, he has not been hospitalized or had any reported fallsSeen recently by the [facility] and had an ultrasound-no records available from the ppt or family.Has an appointment with the [place] for podiatry in March 2019.Immunizations on file include:Influenza vaccine administered 11/2017. ppt will receive this season's influenza vaccine today inthe clinicPneumococcal series is completeTdap was administered 10/18/2014Zostrix vaccine was administered 10/18/2014Healthcare proxy completed 05/15/2017 lists Afiajoshua Moncada as his primary healthcare agent. The HCP was activated 05/22/2017[place] [employer] document dated 12/25/2014 indicates preferences for DNR/DNI. [...] of Chronic Conditions. Mr. Prasad resides in [facility] in an aprtment complex is [facility] that is responsive tothe needs of Veterans. he enrolled with [facility] in August of 2014.In the past 6 months, the ppt has not been sent to the ED or been hospitalized. There has been report of recent falls 1-2 days prior and an episode of fainting per the ppt's nephew Matthew when at another family member's home about a month ago. No injuries have been reported.Seen by [place] medical personnel-no records avaialble. The nephew reports that he has been started on a new blood pressure medication-not sure what the medication isHas an appointment with a Station Repairer 09/01/2018Immunizations on file include:Influenza vaccine administered 03/31/2018Pneumococcal [...] tangentially connected to support of Veterans in [place], [place]. The ppt has mental illness, PTSD cognitive decline. He rarely leaves his apartment. Two brothers have been involved this past 6+ months.Ppt enrolled with [facility] in August of 2014.No recorded ED visits, hospitalizations or falls in the past 6 months.Neuropsychological evaluation performed September [address] Esther Larry PhD, Clinical Psychologist, at the request of [facility].Dx of Major Neurocogntive Disorder and [...] healthcare proxy status to the ppt's family. [place] MOLST document completed 09/08/2014 indicates preferences for DNR/DNI, no artificial nutrition, short term use of dialysis and artificial hydration and evaluation at the hospital for acute illness or injury. Annual 72 year old male seen today in his apartment for his Annual Evaluation and review of Chronic Conditions. Mr. prasad resides in [place] at the [facility] which is [facility] with [facility]. he enrolled with [employer] in August of 2014.The ppt has essentially been homebound over the past 5 months due to issues related to his housing and mental health. Family recently are more aware and involved with the ppt care and are actively engaged with [facility] staff regarding appointments. The ppt is in the process of pursuing potential services through the [place] including the possibility of more formal housing and healthcare.The ppt has not had any ED visits, hospitalizations or reproted falls inthe past 6 months.[facility] currently has health aid services daily to ensure the ppt is eating at least one meal daily.No recent podiatry , dental or vision visits on file. Most likely d/t to ppts unwillingness to leave his residence.Immunizations on file includeInfluenza vaccine administered 02/06/2017Pneumococcal series is completeTdap administered 10/18/2014Zovirax vaccine administered 10/18/2016Health care proxy on file completed 05/15/2017 lists Afia Moncada ([place] rn case mgr) as his primary health care agent. The [...] recorded weight. Home visit I visited home ruby huerta to multiple concerns.-Microwave is working, I plugged [...] of current living situation, he circumlocutes re: Soldlittle's homeHe is NADChronic [facility] d/w team Annual 71 year old male seen today in the clinic for his Semi-Annual Evalution and review of Chronic Conditions. Immanuel lives independently inthe community in an aprtment in [place].He enrolled with [facility] in August of 2014.He visited the [facility] in [place] last week. He states that it would be okay, I just don't know about the $600.00 Will update SW to investigate further.No reported ED or hospital visits in the past 6 months. No reproted falls inthe past 6 months.Last specialty appointments were over one year ago.[facility] continues to pick which medicatins he will take on a regular basis.He has agreed to have his lab work done today.Regular SE days are --Thu.Immunizations of file include:Influenza vaccine administered 02/07/2016. He is open to receiving this season's influenza vaccine.Prevnar administered 10/18/2014Tdap administered 10/18/2014Zoster administered 10/18/2014No healthcare proxy on file at the time of this visit.[place] MOLST document completed 09/08/2014 and indicates preferences for DNR/DNI. WOuld accept [facility] for evaluation of acute injury or illness. Not interested in artificial nutrition, but would be open to short term dilaysis and short term. artificial hydration.No new concerns at the time of this visit.He does report pain with hsi breathing If I walk too much Cognitive Issues 71 year old briana desir seen in clinic today per the request of his VA rn case mgr to re-evaluate cognitive status.Ppt has no specific concerns.He receives Meals 4 days a week and supplements with sandwiches and other cold foods.Denies any difficulty breathing-taking his scheduled respiratory medications and uses the ProAir inhaler as neededNo new onset of pain or discomfort reported.Mentions that he has a routine walk route, where he sits and rests at specific places in the [facility].Reza continues to smoke cigarettes when he can afford to purchase them. Annual Late entry for 2Patisofy is seen in his home, today, due [...] alcohol-He still has no proxyMeds reviewed:Inhalers only, thoygh hes eems to have topical steroid,I am [...] He moves all extremities with good strength. f/u resp status Patient was not scheduled [...] poor eye contact, difficult to engage socially chronic conditions COPD,wt loss, poor a dherence to follow [...] home care in.Patient is moved to the [facility]. He still has, what he admits, are [...] no pots. He does have a can property inspector.ROS:No headacheVision is poor yet he does not [...] front of the building, bend over and picking crew supervisor a bag and do other such things.He [...] had a fair amount of evaluation/supervision by homebound teacher. He generally takes somewhat less than half [...] will be moving to another facility on [facility], he is unsure of the precise move [...] Of note, the patient apparently [facility]. We are unaware of this to one to 2 days ago. I asked him if his intent was to stay with us, he indicated his preference is to remain with [facility].I exchange correspondence with [facility] staff, was told that PCP was appointed but unclear if he saw him. The patient believes she saw someone once. He is quite vague on details. He was apparently also set up for dental and ophthalmology visits. Patient has signed to rejoin [facility] effective 03/25/15.Overall he says he is feeling [...] appear slightly brighter last week.Labs are reviewed Semi annual, chronic medical conditions Semiannual examination for this pleasant gentleman who is extremely hard to to engage in care. He is difficult to reach as he does not have a phone. It is difficult to engage staff at the [place] congregate housing where he lives. He has essentially [...] his ability to get to [facility] and picking crew supervisor medications. I delivered them some months ago. [...] his knowledge no one else in the congregate housing has pruritus. He says that they [...] left.He remains entirely estranged from his family. Hypertension (follow up) COPD Regrettably, as usual is extremely hard to get concrete and accurate answers. What medications he is actually taking is always in the history.His greatest concern, as always, his housing. He apparently left the [place] housing and attempted to live with his [...] (suggest perhaps OTC moisturizer).No other specific complaints. hypertension Follow up medical conditions See n [...] He was able to speak to the vp digital marketing social media and crm again today and she is currently exploring [...] Has no air conditioner, does have fan depression Follow Up of depression Follow Up of hypertension PEE Chronic medical conditions iMtzi pineda in today for PEE. He is able to provide some medical HX. I was able to glean some HX from [facility] notes.A recurrent theme through conversation is housing. He is in [place] housing ,has been for ~2 yrs. He likes it however anxious to have a place of his own. 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 He is looking at apartment in [...] store. Also says he takes bus to [facility], for pharmacy.Has appreciable VIRK, which limits [...] obstructive pulmonary disease, unspecified COPD type Ppt unchanged.No sandy dence of discomfortCont supp care. Related to Comfort measures only status Ppt cantankerous. + anti social behavior which is his baseline. Is eating and drinking well.Supportive care. Related to Major depressive disorder, remission status unspecified, unspecified whether recurrent Ppt unchanged.No sandy dence of discomfortCont supp care. Related to Comfort measures only status Evidenced by gen mus jaja and temporal wasting. Ppt is eating and drinking. 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 Related to Protein-calorie malnutrition, moderate Failed voiding trial s @ [facility].Per [facility] notes:Per [facility] notes.Urinary RetentionHistory of BPHs/p 2 straight caths [...] urinary obstruction Failed voiding trial s @ [facility].Per [facility] notes:Per [facility] notes.Urinary RetentionHistory of BPHs/p 2 straight caths [...] disease, unspecified COPD type U. R. Per [facility] D /C summary.+ hx BPHCont Ponce cath. Related to Urinary retention Per previous records - neuropsychological testing performed at the request of the [facility] [id number] indicated diagnostic Formulation of Major Neurocognitive disorder F10.26, most commonly related to either alcohol use or other psychoactive substance use. - Documents heavy drinking from 1970 until about 2009. [id number] in [place]. Nephew reported heavy drinking after [...] isolation, this has continued since admission to [facility].Cont supp care as allowed. Related to [...] measures only status Evidenced by gen mus jaaj and temporal wasting. + scaphoid abd and [...] al ert upon admission.In reviewing meds w/ nsg Ppt comfort meds which were to be prn have been given scheduled and likely the etiol of obtundation.Meds have been written to reflect prn status.Monitor response Related to Obtunded Speaks of wishing to stay in his [...] and more detailed examination- following with podiatry ([facility] and [facility] pod[facility]ry)- not able to provide urine sample [...] has some of his care through the [place] - sees podiatry, does not want dental since has no teeth, does not want hearing- seen by [facility] optometry today and will refer out to opthalmology- care team to continue to follow Related to Encounter for general adult medical examination w/o abnormal findings - per CT chest at th e [place] 01/2022- RLL 8.7 mm nodule larger than previous - repeat chest CT in 2-3 months- LLL 11.6 mm and 9.4 mm solid nodules have decreased in size- ppt has repeat CT scheduled through [place]- [place] , long time smoker- nephew will keep team updated Related to Pulmonary nodules - CT chest at [place] 01/24 022 indicating mild/mod pulm emphysema- continues to smoke cigarettes (since age 15) and does not want to stop; 2-3 pack/wk as supplied by reza's nephew but nephew reports that he does not smoke the whole cigarette- does not use his inhalers and refuses to; has nebulizer in home which nephew can do - Does not want to be seen by pulmonary. But does appear that [place] has referred him to pulm at [facility] for August and nephew will take him. [...] inhalers. - we had reviewed moving into [facility] or [facility] since care team has had concerns about his home safety since nephew has caregiver burden and there are no other family members available for ppt. Now that reza's diarrhea has decreased in frequency and medications decreased, nephew reports is better able to manage him in the home. Nephew feels for now that ppt is doing ok in his current living situation.- care team to continue to follow and SW to also work on this Related to Dementia associated with other underlying disease with behavioral disturbance - per previous recor ds - neuropsychological testing performed at the request of the [facility] [id number] indicated diagnostic Formulation of Major Neurocognitive disorder F10.26, most commonly related to either alcohol use or other psychoactive substance use. - Documents heavy drinking from 1970 until about 2009. [id number] in [place]. Nephew reported heavy drinking after [...] also is not a good hydrater-10/2021 at [facility] GFR 46, Cr 1.6-04/2021 GFR 43, Cr [...] make sure that he takes his medications- ppt still smokes and has no wish [...] known lung nodule that needs f/u through [place] and had also been set up for endo/colonoscopy through [place] but was not yet completed. - nutrition also following; ppt is not often agreeable to supplementation- has known dx pulm emphysema Related to Protein-calorie malnutrition, moderate - see DM2 with diabe tic CKD, E11.22-follows with [place] podiatry, saw recently. - Upon examination, has keratotic toenails, dependent rubor, decreased hair growth on BLE, continues to smoke; does not walk very far - no reports of claudication- nephew inspects skin when ppt allows- following with podiatry regularly, can see at [place] and at [facility] Related to Type 2 diabetes mellitus with diabetic peripheral angiopathy without gangrene, unspecified whether termite control technician insulin use - due to DM, goal LD L < 70- he is now off of statin for the last few months since he is an inconsistent medication taker and has been losing weight, has dementia- has other medical issues ongoing-can check periodically depending on how his other medical issues are progressing Related to Hyperlipidemia LDL goal <70 - High PHQ at [facility] in 2014. Not able to obtain updated PHQ9 today due to cooperation, distractible. He does seem in better spirits though as compared to previous visits. - not on anti-depressant or behavior stabilization medications, is an inconsistent taker of medications. Counseling would not work, has dementia. Also is connected to the [place] system. - Responds well to his nephew [...] with medication deprescribing - nephew comes by [facility] home 2x/day to give him medications, provide him with food, attempt to help him clean up from his incontinence (which has been less frequent)- per previous paperwork, appears that this has been an issue going back to at least 2014 - care team has worked with reza's nephew on other options for housing and supervision, but [facility] does not allow anyone else into his apartment and [facility] would like to stay where he is [...] will discontinue statin at this time since reza has not been taking medications regularly, is losing weight unintentionally, has other medical issues ongoing- trying to minimize medication burden Related to Hyperlipidemia LDL goal <70 - will get updated f iron vaccine soon, nephew will think about COVID19 booster, will get 2nd Shingrix vaccine in future- [place] has scheduled endoscopy/colonoscopy for November but did not happen - nephew working on getting r/s- he does not want low dose lung CT scan- [facility] has some of [facility] care through the [facility] - seeing podiatry tomorrow, does not want dental since has no teeth, does not want hearing- needs cataract surgery but has not been stable for surgery - care team to continue to follow Related to Encounter for general adult medical examination w/o abnormal findings - continues to smoke cigarettes (since age 15) and does not want to stop; 2 pack/wk as supplied by reza's nephew- does not use his inhalers and [...] performed at the request of the [facility] [id number] indicated diagnostic Formulation of Major Neurocognitive disorder F10.26, most commonly related to either alcohol use or other psychoactive substance use. - Documents heavy drinking from 1970 until about 2009. [phone] in [place]. Nephew reported heavy drinking after [...] severe use disorder - High PHQ at [facility] in 2014. Not able to obtain [...] Chronic post-traumatic stress disorder (PTSD) -10/2021 at [facility] GFR 46, Cr 1.6-04/2021 GFR 43, Cr [...] also been set up for endo/colonoscopy through [place] but was not completed. Ppt also reporting [...] allow examination of feet today; going to [place] podiatry tomorrow. Nephew reports toenails are very overgrown. In previous visit, this specifications writer has noted keratotic toenails, mild dependent rubor, decreased hair growth on BLE, continues to smoke; does not walk very far - no reports of claudication- ppt is not open to accepting care/help, nephew inspects skin when he can- following with podiatry regularly, most recently at [place] Related to Type 2 diabetes mellitus with diabetic peripheral angiopathy without gangrene, unspecified whether termite control technician insulin use - not on DM medicati ons, does not check his sugars- DM eye exam 11/[address] Wheatley indicating no DM retinopathy, do not have updated notes since then; also follows at [place]- following with podiatry (Dr. Mccullough and [place])- not able to provide urine sample - [...] weight, may have malignancy - see hyperlipidemia- reza has dementia and is not motivated to [...] he can continue at his current level; [facility] does not allow anyone else in the home to help the ppt- will work on this with nephew. - nephew may want to walk away from being HCP. Ppt has no secondary HCP nor does he have other family that he is in contact with. Related to Advanced care planning/counseling discussion - continues- nephew comes by [facility] home 2x/day to give him medications, provide him with food, attempt to help him clean up from his incontinence; ppt is not able to cooperate for his inhaler use and nephew would like pharmacy to stop sending the inhalers- per previous paperwork, appears that this has been an issue going back to at least 2014 - care team working with [facility] nephew on other options for housing and supervision, but [facility] does not allow anyone else into his [...] allowing help and nephew will look into [facility] but unclear since there is a long wait list and ppt is resistant. Ppt does not want to move into an [facility], would not necessarily be appropriate for supportive housing. - care team to continue to follow Related to Dementia in other diseases classified elsewhere with behavioral disturbance - per previous recor ds - neuropsychological [facility] [id number] indicated diagnostic Formulation of Major Neurocognitive disorder F10.26, most commonly related to either alcohol use or other psychoactive substance use. - Documents heavy drinking from 1970 until about 2009. [place] [phone] in [place]. Nephew reported heavy drinking after returning from [place]. No current ETOH use reported. 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 Not able to obtain [...] he does not want to move to [facility]. 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 Wheatley indicating no DM retinopathy, do not have updated notes since then; also follows at [place]- following with podiatry (Dr. Mccullough and [place])- not able to provide urine sample - previously + microalbuminuria, on lisinopril 5 mg daily- See CKD3 - N 18.3- A1Cs 01/2021 - 5.3%; 06/2020 - 5.5%; 2019 - <6%; Goal A1C less than 8%- [...] to help him.- he will look into [facility] but there is a long wait list. Ppt refuses [facility], ppt wants to live alone.- discussed that [...] performed [facility] of the [facility] [id number] indicated diagnostic Formulation of Major Neurocognitive disorder F10.26, most commonly related to either alcohol use or other psychoactive substance use. - Documents heavy drinking from 1970 until about 2009. [place] [phone] in [place]. 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 Use [...] performed at the request of the [facility] [id number] indicated diagnostic Formulation of Major Neurocognitive disorder F10.26, most commonly related to either alcohol use or other psychoactive substance use. - Documents heavy drinking from 1970 until about 2009. [place] [phone] in [place]. Nephew reported heavy drinking after [...] he does not want to move to [facility]. 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 -Primary symptom is hesitancy, nocturia- reports symptoms had improved when started tamsulosin; nephew states that he can have some urgency issues and incontinence associated with that Related to BPH w urinary obs/LUTS BP-124/64 Takes Aml odipine and Lisinopril. CKD-3 GFR-47 Related to Hypertensive [...] disease, stage 3a New MOLST signed since mary grace ne w HCP Related to Advanced care planning/counseling discussion - mary grace tries to re mind ppt to take his medications but ppt is not always adherant. Appears that this has been an issue going back to at least 2014 per [facility] paperwork.- mary grace manages medications- discussed importance of continuing on [...] series - nephew will bring him to [place] to have vaccination for Shingrix Related to [...] performed [facility] the [facility] of the [facility] [id number] indicated diagnostic Formulation of Major Neurocognitive disorder F10.26, most commonly related to either alcohol use or other psychoactive substance use. - Documents heavy drinking from 1970 until about 2009. [place] [phone] in [place]. Nephew reported heavy drinking after returning from [employer]. - no current ETOH use reported- nephew [...] Primary generalized (osteo)arthritis - High PHQ at [facility] in 2014. Not able to obtain [...] he does not want to move to [facility]. 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 Nephew tha mead recently went to Dr. Mccullough and then [...] refer higher level of care such as [facility] or [facility]TC. Spent several minutes discussing the difference between the two. REZA continues to lose weight and shows signs [...] performed [facility] of the [facility] [id number] indicated diagnostic Formulation of Major Neurocognitive disorder F10.26, most commonly related to either alcohol use or other psychoactive substance use. - Documents heavy drinking from 1969 until about 5-6 years ago. [place] [phone] in [place]. Nephew reports heavy drinking after [...] dementia. He feels he isn't ready for [facility]p nursing and would refuse [facility]. 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 Wheatley indicating no DM retinopathy- reportedly seeing podiatry in 03/2020 at [place]- microalbumin urine ordered - previously + microalbuminuria, [...] use of insulin, unspecified CKD stage - [facility] show eGFR of 55,- 07/2019 [facility] labs GFR 47- On minimal medications. 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 07/2019 Vitamin D level = 8.- [facility] [...] stress disorder (PTSD) - High PAQ at [facility] in 2014. Updated PHQ9 - about [...] performed [facility] the [facility] of the [facility] [id number] indicated diagnostic Formulation of Major Neurocognitive disorder F10.26, most commonly related to either alcohol use or other psychoactive substance use. - Documents heavy drinking from 1970 until about 5-6 years ago. [phone] in [place]. Nephew reports heavy drinking after returing from [place]. 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 HCP is activated. -Previous psychological evaluation [...] age 15), has also served time in [employer]- he does have some maintenance medications of [...] but needs podiatry visit.- nephew reports has [place] podiatry appt in 03/2020, which he will [...] Had also reportedly seen eye provider at [place]. last A1C 5.5% in 07/2019; due for [...] t esting performedat the request of the [place] [facility] 08/2017. Diagnostic Formulation of Major Neurocognitive disorder F10.26, most commonly related to either alcohol use or other psychoactive substance use. Documents heacy drinking from 1970 until about 5-6 years ago. [place] [phone] in [place]. MoCa 08/31/2018 was 20/30 finished [...] post-traumatic stress disorder (PTSD) High PAQ at [facility]. GDS score today is 5=mild depression. Not [...] on tamsulo sin 0.4 mg daily by [facility] provider. Primary symptom is hesitancy. denies any pain, dribbling, frequency or symptoms of incomplete emptyig of the bladder. No changes at this time. Related to BPH w urinary obs/LUTS Continues on tamsulo sin 0.4 mg daily by [facility] provider. Primary symptom is hesitancy. denies any [...] during the time of his enrollment with [employer]. Ppt not interested in pursuing at this time. Related to Moderate obstructive sleep apnea Hep C Ab +, RNA neg. LFTs have been wnl. 08/2018. Labs from [place] hector not include levels 07/19/2019. No changes at this time. Related to Level of consciousness finding MoCa 08/2018 was 20/3 0. Psychological evaluation 08/2017 indicates not only Major neurocognitive disorder with behavioral disturbance d/t multifactorial variants, but the liklihood of dementia. Long standing alcohol dependence 1970 to . Can be resistant to care, [...] vitamin D value from 08/2018 was 15. [place] provider recently re-prescribed Vitamin D-3 1000 IU [...] as well. Will continue to offer support. Nephbill states that the ppt has a pdiatry appointment at the [place] in March 2019 Related to Tinea unguium No [place] teeth, not interested in dentures. Cuts up [...] changes. Related to Unspecified osteoarthritis, unspecified site ppt does recieve vit aminn D supplements from [facility] and [facility]. last lab value 08/2018 was 13. nephew will encourage ppt to take his medications daily, but unable to reinforce every day. Labs today to monitor levels. Related to Vitamin D deficiency, unspecified Ppt is not willing t o be assess for iFfi. He most likely would not be consistent with use of a C-PAP device although he would greatly benefit . [place] is aware of ppt's resistance to work [...] urinary tract symptoms Ppt is seen by [facility] sp oradically. No anti-psychotics on profile, no [...] MoCa and depression screeenings have been suspended. Ppt is happy to sty at his apartment, go outside to smoke and attend the occasional medical appointment. No concerns for HI/SI at this time. Related to Major depressive disorder, recurrent, unspecified Weight at enrollment was 189 pounds, BMI of 32.44; 08/2018 weight was 195, BMI 32.45; today weight is 200 pounds, BMI is 33.28 Related to Obesity, unspecified Ppt is dyspneic at r est. Becomes overwhelmed with too many medications. Continues to smoke whenever he can. Has Advair 500/50 mcg twice daily; SPiriva 18 mcg daily and PRN ProAir. Often only taking the Advair. Medic[facility]. Ppt's nephew will call when they need refills [...] monitor for changes. Related to Repeated falls Ppt does not wish to pursue eye evaluation at this time. Related to Unspecified cataract Ppt is a [place] amb[place]. Has [...] slightly elevated systolically. Will attempt to obtain [place] office visit notes to determine what other medication ppt is taking. 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 Does continue to [...] Tobacco use disorder AF cream Related to [place] tophytosis of foot Increase the lisinop ril [...] to Depressive disorder, not elsewhere classified Control [employer] microalb Related to Chronic kidney disease, Stage [...] depression, post traumatic stress disorder (PTSD), dementia, Blaynes hygiene needs will be met with assistance through next review August 2023 Patient Goal Complete 9 Immanuel has potential for complications related to [...]
[2024-09-09 08:11] LABS: Basophils Absolute Auto 0.1 X10*3/uL (0.0-0.2); Basophils Percent Auto 0.8 % (0-2); Eosinophils Absolute Auto 0.1 X10*3/uL (0.0-0.4); Eosinophils Percent Auto 1.9 % (0-4); Hematocrit 41.2 % (42.0-52.0); Hemoglobin 13.5 g/dl (14.0-18.0); Imm Gran Abs Auto 0.03 X10*3/uL (0.00-0.03); Imm Gran Pct Auto 0.5 % (0.0-0.4); Lymphocytes Absolute Auto 1.6 X10*3/uL (1.2-4.9); Mean Corpuscular HGB Conc 32.8 g/dl (31.0-36.0); Mean Corpuscular Hemoglobin 30.2 pg (27.0-33.0); Mean Corpuscular Volume 92.2 fL (80.0-98.0); Mean Platelet Volume 10.6 fL (9.4-12.4); Monocytes Absolute Auto 0.5 X10*3/uL (0.1-1.2); Monocytes Percent Auto 8.5 % (2-11); Neutrophils Percent Auto 63.3 % (45-73); Platelet Count 205 X10*3/uL (160-400); Red Blood Count 4.47 X10*6/uL (4.60-5.80); Red Cell Distribution Width 14.7 % (11.0-16.0); White Blood Count 6.3 X10*3/uL (4.8-10.8)
[2024-09-09 08:23] LABS: Estimated Average Glucose 117 mg/dL; Hemoglobin A1C 138.4185 umol/L; Hemoglobin A1c % 5.7 % (<6.0); Total Hemoglobin (HGBA1C) 3531.0911 umol/L
[2024-09-09 08:34] LABS: Alanine Aminotransferase 9 U/L (0-40); Albumin Level 3.8 g/dL (3.5-5.0); Anion Gap 11 (12-20); Aspartate Amino Transferase 18 U/L (5-37); Bilirubin Total 0.2 mg/dL (0.0-1.0); Blood Urea Nitrogen 18 mg/dL (9-16); Calcium 9.2 mg/dL (8.4-10.2); Carbon Dioxide 26 mmol/L (22-29); Chloride 109 mmol/L (96-108); Cholesterol 167 mg/dL (<200); Estimated Glomerular Filt Rate 60; Glucose Random 85 mg/dL (60-115); HDL Cholesterol 46 mg/dL (>40); LDL Cholesterol Calculated 98 mg/dL (<100); Potassium 4.2 mmol/L (3.3-5.1); Sodium 142 mmol/L (135-145); Total Protein 6.6 g/dL (6.5-8.0); Triglycerides 116 mg/dL (<150)
[2024-09-09 08:36] LABS: Alkaline Phosphatase 81 U/L (39-117)
[2024-09-09 08:51] LABS: Thyroid Stimulating Hormone 2.54 uIU/mL (0.32-4.0); Vitamin D 25-OH Total 59.2 ng/mL (>30)
[2024-09-09 08:58] LABS: Folate 9.5 ng/mL (> or = 4.0); Vitamin B12 306 pg/mL (200-900)
== END 2024-09-09 07:50 | disposition home or self-care (01) ==
LOC: HO.HSH2W 07:49
PROVIDERS: Visit Provider Internal Medicine
DX: N18.9 Chronic kidney disease, unspecified (principal); E11.9 Type 2 diabetes mellitus without complications; R41.9 Unspecified symptoms and signs involving cognitive functions and awareness
CPT/HCPCS: 36415; 80053; 80061; 82306; 82607; 82746; 83036; 84443; 85025

== ENCOUNTER 2024-10-25 06:53 | Outpatient (REF) | payer MEDICARE, MEDICAID, SELFPAY ==
[2024-10-25 07:26] LABS: Anion Gap 11 (12-20); Blood Urea Nitrogen 19 mg/dL (9-16); Calcium 9.6 mg/dL (8.4-10.2); Carbon Dioxide 26 mmol/L (22-29); Chloride 108 mmol/L (96-108); Estimated Glomerular Filt Rate > 60; Glucose Random 118 mg/dL (60-115); Magnesium 2.1 mg/dL (1.6-2.6); Potassium 4.2 mmol/L (3.3-5.1); Sodium 141 mmol/L (135-145)
== END 2024-10-25 06:54 | disposition home or self-care (01) ==
LOC: HO.HSH2W 06:53
PROVIDERS: Visit Provider Internal Medicine
DX: F32.A Depression, unspecified (principal); I10 Essential (primary) hypertension
CPT/HCPCS: 36415; 80048; 83735

== ENCOUNTER 2025-03-02 06:05 | Outpatient (REF) | payer MEDICARE, MEDICAID, SELFPAY ==
[2025-03-02 06:38] LABS: MANUAL DIFF FLAG NO
[2025-03-02 06:47] LABS: Hematocrit 33.7 % (42.0-52.0); Hemoglobin 10.9 g/dl (14.0-18.0); Imm Gran Abs Auto 0.02 X10*3/uL (0.00-0.03); Imm Gran Pct Auto 0.3 % (0.0-0.4); Lymphocytes Absolute Auto 0.7 X10*3/uL (1.2-4.9); Mean Corpuscular HGB Conc 32.3 g/dl (31.0-36.0); Mean Corpuscular Hemoglobin 29.0 pg (27.0-33.0); Mean Corpuscular Volume 89.6 fL (80.0-98.0); NRBC Abs Auto 0.000 X10*3/uL (0.0-0.012); NRBC Pct Auto 0.0 /100WBC (0.0-0.2); Platelet Count 246 X10*3/uL (160-400); Red Blood Count 3.76 X10*6/uL (4.60-5.80); White Blood Count 7.5 X10*3/uL (4.8-10.8)
[2025-03-02 07:11] LABS: Alanine Aminotransferase 23 U/L (0-40); Albumin Level 3.5 g/dL (3.5-5.0); Alkaline Phosphatase 92 U/L (39-117); Anion Gap 13 (12-20); Aspartate Amino Transferase 15 U/L (5-37); Blood Urea Nitrogen 17 mg/dL (9-16); Calcium 9.0 mg/dL (8.4-10.2); Carbon Dioxide 23 mmol/L (22-29); Chloride 111 mmol/L (96-108); Estimated Glomerular Filt Rate 53; Potassium 4.2 mmol/L (3.3-5.1); Sodium 143 mmol/L (135-145); Total Protein 6.1 g/dL (6.5-8.0)
[2025-03-02 07:26] LABS: Thyroid Stimulating Hormone 2.04 uIU/mL (0.32-4.0)
== END 2025-03-02 06:06 | disposition home or self-care (01) ==
LOC: HO.HSH2W 06:05
PROVIDERS: Visit Provider Internal Medicine
DX: Z13.89 Encounter for screening for other disorder (principal)
CPT/HCPCS: 36415; 80053; 84443; 85025

== ENCOUNTER 2025-03-04 13:52 | Outpatient (REF) | payer MEDICARE, MEDICAID, SELFPAY ==
--- OUTSIDE RECORDS SUMMARY | 2023-04-23 12:15 | XMS_ITS | Continuity of Care Document ---
Author Organization [facility] [place] Address [address] [address] Phone Care Team Providers Care Color Repairer Name Role Phone Graciela EDOUARD, Alessandra Unavailable Unavailable Allergies, Adverse Reactions, Alerts Substance Reaction Status Criticality No Known Allergies Active No Inform ation Medications Medication Instructions Dosage Effective Dates (start - stop) Status Comments morphine concentrate 100 mg/5 mL (20 mg/mL) oral solution EOL MEDICATION IN SNF - take 0.25 milliliter (5 mg) PO/SL Q2 Hour PRN pain, dyspnea - Active Lorazepam Intensol 2 mg/mL oral concentrate EOL MEDICATION - take 0.25 milliliter (0.5 mg) by oral/SL route Q4 hour PRN anxiety/agitation - Active bisacodyl 10 mg rectal suppository insert 1 suppository by rectal route every day as needed for constipation 10 MG - Active Fleet Enema 19 gram-7 gram/118 mL insert 1 kit by rectal route every day 1 kit - Active Narcan 4 mg/actuation nasal spray spray 0.1 milliliter by intranasal route in 1 nostril may repeat dose every 2-3 minutes as needed alternating nostrils with each dose 4 MG - Active Tylenol 325 mg tablet take 2 tablet by o ral route every 6 hours as needed 650 MG - Active ProAir HFA 90 mcg/actuation aerosol inhaler inhale 2 puff by inhalation route every 4 - 6 hours as needed - Active Advance Directives Directive Yes / No Effective Date File Name No Information Encounters Encounter Description Practice Location Reason(s) For Visit Diagnoses Date Provider [facility], 1 [facility], [place], [place], [id number], [place] tel:[phone] [place] No Information 3 Graciela Aparicio. [address], [place], [place], [id number], . tel:[phone] [facility], 1 [facility], [place], [place], [id number], [place] tel:[phone] [place] OSV (chief complaint)osv (chief complaint) Major depressive disorder, remission status unspecified, unspecified whether recurrentComfort measures only statusChronic obstructive pulmonary disease, unspecified COPD typeTobacco abuse 3 Mulugeta Love. [address] [place], [place], [id number], [place]. tel:[phone] [facility], [address], [id number], [place] tel:[phone] [place] Moderate protein-calorie malnutrition 3 Palaciosmelita Bashirndy. [address] [place], [address]. tel:[phone] [facility], [facility] [address] [place] [address], [id number], [place] tel:[phone] [place] OSV (chief complaint) Protein-calorie malnutrition, moderateComfort measures only status 3 Mulugeta Love. [address], [place], [id number], [place]. tel:[phone] [facility], [facility] [address] [place] [address], [id number], [place] tel:[phone] [place] Encounter for rehabilitation evaluation Jan-2 3 Ameena Paulson. [address] [place], [address]. tel:[phone] [facility], [facility] [address] [place] [address], [id number], [place] tel:[phone] [place] Encounter for rehabilitation evaluation 3 Az Love. [address] [place], [address]. tel:[phone] [facility], 1 [facility], [place], [place], [id number], [place] tel:[phone] [place] Encounter for rehabilitation evaluation 3 Casper Maynardah Beth. [address] [facility], [place], [place], [id number]. tel:[phone] [facility], [address] [address], [place], [place], [id number], [place] tel:[phone] Nelson No Information 3 Ashutosh Bledsoe. [address] [place], [place], [id number], [place]. tel:[phone] [facility], 1 [facility], [place], [place], [id number], [place] tel:[phone] Nelson Abnormal weight lossEncounter for nutritional assessmentModerate protein-calorie malnutritionUnderwei ght 3 Normile Denice. [address] [place], [place], [id number], [place]. tel:[phone] [facility], [address], [id number], [place] tel:[phone] [place] Encounter for rehabilitation evaluation 3 Poncho Agee. [address] [place], [place], [id number], [place]. tel:[phone] [facility], 1 [facility] [address] [place] [address], [id number], [place] tel:[phone] [facility] f/u (chief complaint) Benign prostatic hyperplasia with urinary obstructionOther obstructive and reflux uropathy 3 Mulugeta Love. [address] [place], [place], [id number], [place]. tel:[phone] [facility], [address], [id number], [place] tel:[phone] [facility] f/u (chief complaint) Urinary retentionChronic obstructive pulmonary disease, unspecified COPD typeTobacco abuse 3 Mulugeta Love. [address] [place], [place], [id number], . tel:[phone] [facility], [address], [id number], [place] tel:[phone] [facility] f/u (chief complaint) Depression, major, recurrent, mildDementia associated with other underlying disease with behavioral disturbanceAlcohol-i nduced major neurocognitive disorder, amnestic confabulatory type, with moderate or severe use disorder 3 Mulugeta Love. [address] [place], [place], [id number], [place]. tel:[phone] [facility], [address], [id number], [place] tel:[phone] [facility] f/u (chief complaint) Depression, major, recurrent, mildProtein-calorie malnutrition, moderateComfort measures only status 3 Mulugeta Love. [address] [place], [place], [id number], [place]. tel:[phone] [facility], [address], [id number], [place] tel:[phone] [facility] admission (chief complaint) ObtundedComfort measures only status 3 Mulugeta Love. [address], [place], [id number], [place]. tel:[phone] [facility], [address], [id number], [place] tel:[phone] Nelson Self neglect (chief complaint) Self neglectParanoiaPassi ve suicidal ideations 3 Ashutosh Bledsoe. [address] [place] [address], [id number], [place]. tel:[phone] [facility], 1 [facility] [address] [place] [address], [id number], [place] tel:[phone] Nelson Encounter for general adult medical examination w/o abnormal findings 3 Johnny Montilla. [address] [place], [place], [id number], [place]. tel:[phone] [facility], 1 [facility], [place], [place], [id number], [place] tel:[phone] Nelson Difficulty in walking, not elsewhere classifiedEncounter for rehabilitation evaluation 3 Rema Myles. [address] [place], [address]. tel:[phone] [facility], [address] [address], [place], [place], [id number], [place] tel:[phone] [place] Encounter for rehabilitation evaluation 3 Willie Santana. [address] [place], [place], [id number], [place]. tel:[phone] [facility], 1 [facility], [place], [place], [id number], [place] tel:[phone] Nelson Diabetic cataractNoncomplianc e w/medication treatment due to intermit use of medicationChronic post-traumatic stress disorder (PTSD)Depression, major, recurrent, mildHyperlipidemia LDL goal <70Type 2 diabetes mellitus with diabetic peripheral angiopathy without gangrene, unspecified whether oysterman insulin useProtein-calorie malnutrition, moderateHypertensive renal disease, stage 1 through stage 4 or unspecified chronic kidney diseaseStage 3b chronic kidney diseaseAlcohol-induc ed major neurocognitive disorder, amnestic confabulatory type, with moderate or severe use disorderDementia associated with other underlying disease with behavioral disturbancePulmonary emphysema, unspecified emphysema typePulmonary nodulesTobacco abuseEncounter for general adult medical examination w/o abnormal findingsType 2 diabetes mellitus with chronic kidney disease, without long-term current use of insulin, unspecified CKD stage Mar-2 3 Cysz Eladia. [address] [facility] [place], [id number], [place]. tel:[phone] [facility], 1 [facility], [place], [place], [id number], [place] tel:[phone] Nelson No Information 2 Cysz Eladia. [address] [facility] [place], [id number], [place]. tel:[phone] [facility], [address] [facility] [address], [place], [place], [id number], [place] tel:[phone] Nelson Hypertensive chronic kidney disease with stage 1 through stage 4 chronic kidney disease, or unspecified chronic kidney disease Sep-2 2 Cysz Eladia. [address] [facility] [place], [id number], [place]. tel:[phone] [facility], 1 [facility], [place], [place], [id number], [place] tel:[phone] Nelson Encounter for nutritional assessmentAbnormal weight lossModerate protein-calorie malnutrition Jan-2 2 Patricia Zvaala. [address] [facility], [place], [address]. tel:[phone] [facility], 1 [facility], [place], [place], [id number], [place] tel:[phone] Nelson BIANNUAL (chief complaint) Noncompliance w/medication treatment due to intermit use of medicationAdvanced care planning/counseling discussionType 2 diabetes mellitus with chronic kidney disease, without long-term current use of insulin, unspecified CKD stageType 2 diabetes mellitus with diabetic peripheral angiopathy without gangrene, unspecified whether longterm insulin useProtein-calorie malnutrition, moderateDiabetic cataractDiarrhea, unspecified typeHypertensive chronic kidney disease with stage 1 through stage 4 chronic kidney disease, or unspecified chronic kidney diseaseStage 3a chronic kidney diseaseChronic post-traumatic stress disorder (PTSD)Depression, major, recurrent, mildAlcohol-induced major neurocognitive disorder, amnestic confabulatory type, with moderate or severe use disorderDementia in other diseases classified elsewhere with behavioral disturbanceChronic obstructive pulmonary disease, unspecified COPD typeTobacco abuseEncounter for general adult medical examination w/o abnormal findingsHyperlipidem ia LDL goal <70 Jan-2 2 Cysz Eladia. [address] [facility], [place], [place], [id number], [place]. tel:[phone] [facility], [address], [place], [place], [id number], [place] tel:[phone] Nelson COVID swab (chief complaint) Encounter for screening for COVID-19 Oct- 2 Cysz Eladia. [address] [facility], [place], [place], [id number], [place]. tel:[phone] [facility], [address] [facility] [address] [facility], [place], [place], [id number], [place] tel:[phone] Nelson Encounter for rehabilitation evaluationDifficulty in walking, not elsewhere classifiedMuscle weakness (generalized) Apr-0 2 Casper León. 101 [facility] [place], [place], [id number]. tel:[phone] [facility], [address] [facility] [facility], [place], [place], [id number], [place] tel:[phone] Nelson Encounter for rehabilitation evaluation Aug-0 2 Rema Myles. [address] [facility], [place], [address]. tel:[phone] [facility], [address], [place], [place], [id number], [place] tel:[phone] Nelson Encounter for nutritional assessment Jul- 2 Normile Denice. [address] [place], [place], [id number], [place]. tel:[phone] [facility], [address], [place], [place], [id number], [place] tel:[phone] Nelson biannual (chief complaint)med rec/semi (chief complaint) History of fallingNoncompliance w/medication treatment due to intermit use of medicationAdvanced care planning/counseling discussionType 2 diabetes mellitus with chronic kidney disease, without long-term current use of insulin, unspecified CKD stageType 2 diabetes mellitus with diabetic peripheral angiopathy without gangrene, unspecified whether longterm insulin useDiabetic cataractDiarrhea, unspecified typeHypertensive chronic kidney disease with stage 1 through stage 4 chronic kidney disease, or unspecified chronic kidney diseaseStage 3b chronic kidney diseaseChronic post-traumatic stress disorder (PTSD)Depression, major, recurrent, mildAlcohol-induced major neurocognitive disorder, amnestic confabulatory type, with moderate or severe use disorderDementia in other diseases classified elsewhere with behavioral disturbanceChronic obstructive pulmonary disease, unspecified COPD typeTobacco abuse 2 Cysz Eladia. [address] [place], [place], [id number], [place]. tel:[phone] [facility], [address], [id number], [place] tel:[phone] Nelson No Information 2 Casper Maynardah Beth. [address] [facility], [place], [place], [id number]. tel:[phone] [facility], [address], [id number], [place] tel:[phone] Nelson No Information 2 Cysz Eladia. [address] [place], [place], [id number], [place]. tel:[phone] [facility], [facility] [address] [place] [address], [id number], [place] tel:[phone] Nelson Diarrhea, unspecified type 1 Cysz Eladia. [address] [place], [place], [id number], [place]. tel:[phone] [facility], [address] [place], [id number], [place] tel:[phone] Nelson f/u; diarrhea (chief complaint) Dementia in other diseases classified elsewhere with behavioral disturbanceDiarrhea, unspecified typeStage 3a chronic kidney diseaseChronic obstructive pulmonary disease, unspecified COPD typeHypertensive chronic kidney disease with stage 1 through stage 4 chronic kidney disease, or unspecified chronic kidney diseaseAlcohol-induc ed major neurocognitive disorder, amnestic confabulatory type, with moderate or severe use disorder 1 Cysevert Montilla. [address], [place], [place], [id number], [place]. tel:[phone] [facility], [address] [address], [place], [place], [id number], [place] tel:[phone] Nelson ALEXANDER (chief complaint) History of fallingNoncompliance w/medication treatment due to intermit use of medicationAdvanced care planning/counseling discussionType 2 diabetes mellitus with stage 3a chronic kidney disease, without long-term current use of insulinChronic kidney disease, stage 3aType 2 diabetes mellitus with diabetic peripheral angiopathy without gangrene, without long-term current use of insulinHypovitaminos is DDiabetic cataractHypertensive chronic kidney disease with stage 1 through stage 4 chronic kidney disease, or unspecified chronic kidney diseaseUrinary hesitancyBPH w urinary obs/LUTSOther obstructive and reflux uropathyAnemia in chronic kidney diseaseChronic post-traumatic stress disorder (PTSD)Depression, major, recurrent, mildChronic obstructive pulmonary disease, unspecified COPD typeAlcohol-induced major neurocognitive disorder, amnestic confabulatory type, with moderate or severe use disorderDementia in other diseases classified elsewhere with behavioral disturbanceModerate obstructive sleep apneaOnychomycosisGa it instabilityTobacco abuse 1 Galen Linares. [address], [place], [address], [place]. tel:[phone] [facility], [address] [address], [place], [place], [id number], [place] tel:[phone] Nelson Difficulty in walking, not elsewhere classified 1 Rema Myles. [address] [place], [address]. tel:[phone] [facility], [address] [facility], [place], [place], [id number], [place] tel:[phone] Nelson No Information Aug- 1 Ashutosh Rakan. [address] [place], [place], [id number], [place]. tel:[phone] [facility], [address] [facility], [place], [place], [id number], [place] tel:[phone] Nelson No Information Aug- 1 Ashutoshrolando Blevinsn. [address] [place], [place], [id number], [place]. tel:[phone] [facility], [address] [facility] [address], [place], [place], [id number], [place] tel:[phone] Nelson advanced care planning (chief complaint) Advanced care planning/counseling discussion Aug-0 1 Cysevert Montilla. [address] [place], [place], [id number], [place]. tel:[phone] [facility], [address] [facility], [place], [place], [id number], [place] tel:[phone] Nelson Type 2 diabetes mellitus with chronic kidney disease, without long-term current use of insulin, unspecified CKD stage Jul- 1 Cysz Eladia. [address] [place], [place], [id number], [place]. tel:[phone] [facility], [address] [facility] [facility], [place], [place], [id number], [place] tel:[phone] Nelson Encounter for rehabilitation evaluation Jul-0 1 Poncho Agee. [address] [place], [place], [id number], [place]. tel:[phone] [facility], 1 [facility], [place], [place], [id number], [place] tel:[phone] Nelson Encounter for rehabilitation evaluation 1 Therchasex Sandra. [address], [place], [address]. tel:[phone] [facility], [address] [address], [place], [place], [id number], tel:[phone] Nelson biannual (chief complaint) Noncompliance w/medication treatment due to intermit use of medicationAcquired absence of all teethDiabetic cataractTobacco abuseHistory of fallingOnychomycosis Tinea pedis of both feetType 2 diabetes mellitus with chronic kidney disease, without long-term current use of insulin, unspecified CKD stageType 2 diabetes mellitus with diabetic peripheral angiopathy without gangrene, unspecified whether oysterman insulin useHypovitaminosis DHypertensive chronic kidney disease with stage 1 through stage 4 chronic kidney disease, or unspecified chronic kidney diseaseBPH w urinary obs/LUTSOther obstructive and reflux uropathyUrinary hesitancyChronic post-traumatic stress disorder (PTSD)Depression, major, recurrent, mildPrimary generalized (osteo)arthritisAlco hol-induced major neurocognitive disorder, amnestic confabulatory type, with moderate or severe use disorderDementia in other diseases classified elsewhere with behavioral disturbanceChronic obstructive pulmonary disease, unspecified COPD typeEncounter for general adult medical examination w/o abnormal findingsAdvanced care planning/counseling discussionStage 3a chronic kidney disease 1 Johnny Montilla. [address] [place], [place], [id number], [place]. 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 [address], [place], [place], [id number], [place]. 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 101 [facility], [place], [place], [id number], [place]. tel:[phone] [facility], [address] [address], [place], [place], [id number], tel:[phone] Nelson Encounter for nutritional assessment Sep-0 0 Patricia Zavala. 101 [facility], [place], [address]. tel:[phone] [facility], [address] [address], [place], [place], [id number], [place] tel:[phone] Nelson No Information Sep-0 0 Iris Jackson. 101 [facility] [place], [place], [id number]. tel:[phone] [facility], [address] [address], [place], [place], [id number], tel:[phone] Nelson biannual (chief complaint) Noncompliance w/medication treatment due to intermit use of medicationDiabetic cataractTobacco abuseRepeated fallsOnychomycosisTi yaz pedis of both feetChronic obstructive pulmonary disease, unspecified COPD typeDementia in other diseases classified elsewhere with behavioral disturbanceAlcohol-i nduced cognitive dysfunctionPrimary generalized (osteo)arthritisDepr ession, major, recurrent, mildChronic post-traumatic stress disorder (PTSD)BPH w urinary obs/LUTSUrinary hesitancyMicroalbumi nuriaAcquired absence of all teethWeight loss, unintentionalBody mass index (bmi) 25.0-25.9, adultOverweightHypov itaminosis DHypertensive chronic kidney disease with stage 1 through stage 4 chronic kidney disease, or unspecified chronic kidney diseaseCKD (chronic kidney disease), stage IIIType 2 diabetes mellitus with chronic kidney disease, without long-term current use of insulin, unspecified CKD stageType 2 diabetes mellitus with diabetic peripheral angiopathy without gangrene, unspecified whether longterm insulin use Jan-0 0 Cysz Eladia. [address] [place], [place], [id number], [place]. tel:[phone] [facility], [address], [place], [place], [id number], [place] tel:[phone] Nelson Type 2 diabetes mellitus w diabetic chronic kidney diseaseTinea unguium 0 Cysz Eladia. [address] [place], [place], [id number], [place]. tel:[phone] [facility], [address], [place], [place], [id number], [place] tel:[phone] Nelson Encounter for nutritional assessment 0 Patricia Sally. [address] [place], [address]. tel:[phone] [facility], [address], [place], [place], [id number], [place] tel:[phone] Nelson Annual (chief complaint) Adult general medical examType 2 diabetes mellitus with stage 3 chronic kidney disease, without long-term current use of insulinChronic kidney disease, stage 3 (moderate)Diabetic cataractBody mass index (bmi) 29.0-29.9, adultOverweightHypov itaminosis DHypertensive chronic kidney disease with stage 1 through stage 4 chronic kidney disease, or unspecified chronic kidney diseaseMicroalbuminu riaBPH w urinary obs/LUTSOther obstructive and reflux uropathyAnemia in chronic kidney diseaseDepression, major, recurrent, mildChronic post-traumatic stress disorder (PTSD)Alcohol-induce d cognitive dysfunctionPrimary osteoarthritis involving multiple jointsDementia in other diseases classified elsewhere with behavioral disturbanceLevel of consciousness findingChronic obstructive pulmonary disease, unspecified COPD typeModerate obstructive sleep apneaTobacco abuseOnychomycosisTi yaz pedis of both feet 0 Iris Jackson. [address] [place], [place], [id number]. tel:[phone] [facility], [facility] [facility], [place], [place], [id number], [place] tel:[phone] Nelson Adult general medical examVitamin D deficiency 0 Iris Jackson. [address] [place], [place], [id number]. tel:[phone] [facility], 1 [facility], [place], [place], [id number], [place] tel:[phone] Nelson Obesity, unspecified 9 Patricia Sally. [address], [place], [address]. tel:[phone] [facility], 1 [facility], [place], [place], [id number], [place] tel:[phone] Nelson Semi Annual (chief complaint) Type 2 diabetes mellitus with diabetic chronic kidney diseaseChronic kidney disease, stage 3 (moderate)Chronic obstructive pulmonary disease, unspecifiedObesity, unspecifiedMajor depressive disorder, recurrent, unspecifiedAlcohol dependence with alcohol-induced persisting dementiaBenign prostatic hyperplasia without lower urinary tract symptomsProteinuria, unspecifiedObstructi ve sleep apnea (adult) (pediatric)Nicotine dependence, other tobacco product, uncomplicatedVitamin D deficiency, unspecifiedUnspecifi ed osteoarthritis, unspecified siteUnsteadiness on feetPost-traumatic stress disorder, chronicComplete loss of teeth, unspecified cause, unspecified classTinea unguiumAnemia in chronic kidney disease 9 Iris Jackson. [address] [place], [place], [id number]. tel:[phone] [facility], 1 [facility], [place], [place], [id number], [place] tel:[phone] Nelson No Information 9 Ashutosh Rakan. [address] [place], [place], [id number], [place]. tel:[phone] [facility], 1 [facility], [place], [place], [id number], [place] tel:[phone] Nelson Chronic obstructive pulmonary disease, unspecified 9 Ashutosh Rakan. [address] [place], [place], [id number], [place]. tel:[phone] [facility], 1 [facility], [place], [place], [id number], [place] tel:[phone] Nelson Chronic obstructive pulmonary disease, unspecified 9 Rema Myles. [address] [place], [address]. tel:[phone] [facility], 1 [facility], [place], [place], [id number], [place] tel:[phone] Nelson Abnormal weight loss Aug- 9 Patricia Zavala. [address] [place], [address]. tel:[phone] [facility], 1 [facility], [place], [place], [id number], [place] tel:[phone] Nelson Annual (chief complaint) Type 2 diabetes mellitus with diabetic chronic kidney diseaseObstructive sleep apnea (adult) (pediatric)Major depressive disorder, recurrent, unspecifiedObesity, unspecifiedAlcohol dependence with alcohol-induced persisting dementiaTinea unguiumVitamin D deficiency, unspecifiedProteinur ia, unspecifiedUnspecifi ed mental disorder due to known physiological conditionUnspecified cataractRepeated fallsBenign prostatic hyperplasia without lower urinary tract symptomsTinea pedis Apr-0 9 9 Iris Jackson. [address] [facility], [place], [place], [id number]. tel:[phone] [facility], 1 [facility], [place], [place], [id number], [place] tel:[phone] Nelson No Information Jul-2 7-201 9 Cobypatricia Doen Esther León. [address] [facility], [place], [place], [address]. tel:[phone] [facility], 1 [facility], [place], [place], [address], [place] tel:[phone] Nelson No Information Mar-0 8-201 8 Ashutosh Bledsoe. [address] [place], [place], [id number], [place]. tel:[phone] [facility], [address] [address], [place], [place], [id number], [place] tel:[phone] Nelson Annual (chief complaint) Post-traumatic stress disorder, chronicObstructive sleep apnea (adult) (pediatric)Repeated fallsUnspecified cataractUnsteadiness on feet Sep-2 0-201 8 Iris Jackson. [address] [facility], [place], [place], [address]. tel:[phone] [facility], 1 [facility], [place], [place], [id number], [place] tel:[phone] Nelson No Information Aug-1 0-201 8 Patricia Sally. [address] [facility], [place], [address]. tel:[phone] [facility], 1 [facility], [place], [place], [id number], [place] tel:[phone] Nelson Chronic obstructive pulmonary disease, unspecified Apr-0 5-201 8 Jordy Love. 101 [facility], [place], [address]. tel:[phone] [facility], 1 [facility], [place], [place], [id number], [place] tel:[phone] Nelson Annual (chief complaint) Unspecified cataractObstructive sleep apnea (adult) (pediatric) Apr-0 3-201 8 Iris Jackson. [address] [place], [place], [id number]. tel:[phone] [facility], [address] [facility], [place], [place], [id number], [place] tel:[phone] Nelson No Information 8 Casper León. [address] [facility] [address] [place], [place], [id number]. tel:[phone] [facility], 1 [facility], [place], [place], [address], [place] tel:[phone] Nelson Home visit (chief complaint) No Information 7 Sahutosh Rakan. [address] [place], [place], [id number], [place]. tel:[phone] [facility], 1 [facility], [place], [place], [id number], [place] tel:[phone] Nelson Annual (chief complaint) No Information 7 Iris Jackson. [address] [facility] [address] [place], [place], [id number]. tel:[phone] [facility], 1 [facility], [place], [place], [address], [place] tel:[phone] Nelson No Information 7 Ashutosh Bledsoe. [address] [place], [place], [address], [place]. tel:[phone] [facility], [facility], [place], [place], [address], [place] tel:[phone] Nelson Cognitive Issues (chief complaint) Impacted cerumen, bilateralNicotine dependence, cigarettes, uncomplicated Galo 7 Iris Jackson. [address] [facility] [address] [place], [place], [id number]. tel:[phone] [facility], 1 [facility], [place], [place], [id number], [place] tel:[phone] Nelson No Information Aug-2 7 Philip Henson. [address] [place], [place], [address]. tel:[phone] [facility], [address] [facility] [address] [place] [address], [id number], [place] tel:[phone] Nelson No Information Aug-0 7 Giorgio Martineswn. [address], [place], [place], [id number]. tel:[phone] [facility], 1 [facility] [address] [place] [address], [id number], [place] tel:[phone] Nelson Annual (chief complaint) Unspecified osteoarthritis, unspecified siteOther abnormalities of gait and mobilityAbnormal weight lossChronic viral hep CCataractHyperlipide miaAlbuminuriaEncoun ter for general adult medical exam w abnormal findings 0 7 Ashutoshrolando Blevinsn. [address] [place], [place], [id number], [place]. tel:[phone] [facility], [address] [place] [address], [id number], [place] tel:[phone] No Information 6 No Information [facility], 1 [facility] [address] [place] [address], [id number], [place] tel:[phone] Nelson Semiannual (chief complaint) Other abnormalities of gait and mobilityEncounter for general adult medical exam w abnormal findings 6 Ashutosh Rakan. [address] [place], [place], [address], [place]. tel:[phone] [facility], 1 [facility] [address] [place] [address], [id number], [place] tel:[phone] Nelson chronic conditions (chief complaint)f/u resp status (chief complaint) No Information 0 6 Ashutosh Rakan. [address] [place], [place], [id number], [place]. tel:[phone] [facility], [address], [address], [place] tel:[phone] Nelson COPD,wt loss, poor adherence to follow up (chief complaint) No Information 6 Ashutosh Rakan. [address] [place], [place], [id number], [place]. tel:[phone] [facility], [address], [place], [place], [address], [place] tel:[phone] Nelson No Information 6 Casper Maynardah Beth. [address] [place], [place], [address]. tel:[phone] [facility], [address] [place] [address], [id number], [place] tel:[phone] Nelson No Information 0 6 Despres Mala. [address] [place], [address]. tel:[phone] [facility], [address] [place] [address], [id number], [place] tel:[phone] Nelson Annual (chief complaint) Unspecified cataractEncounter for general adult medical exam w abnormal findings 0 6 Ashutosh Rakan. [address] [place], [place], [address], [place]. tel:[phone] [facility], [address] [place] [address], [id number], [place] tel:[phone] Nelson general f/u (chief complaint) Complete loss of teeth, unspecified cause, unspecified classUnspecified cataractEncounter for general adult medical exam w abnormal findings 6 Ashutosh Rakan. [address] [place], [place], [id number], [place]. tel:[phone] [facility], [address], [place], [place], [address], [place] tel:[phone] Nelson No Information 0 5 Despres Mala. [address] [place], [address]. tel:[phone] [facility], [address] [facility], [place], [place], [address], [place] tel:[phone] Nelson Tinea pedis 5 Ashutosh Rakan. [address] [place], [place], [address], [place]. tel:[phone] [facility], 1 [facility], [place], [place], [address], [place] tel:[phone] Nelson No Information 5 Despres Mala. 55 [facility], [place], [address]. tel:[phone] [facility], 1 [facility], [place], [place], [address], [place] tel:[phone] Nelson F/U multiple medical issues (chief complaint) Other abnormalities of gait and mobilityUnspecified cataract 5 Ashutosh Rakan. [address] [place] [address], [id number], [place]. tel:[phone] [facility], 1 [facility] [address] [place] [address], [id number], [place] tel:[phone] Nelson Follow up HTN, CKD, DM (chief complaint) No Information 0 5 Ashutosh Rakan. [address] [place], [place], [address], [place]. tel:[phone] [facility], [address] [place] [address], [id number], [place] tel:[phone] Nelson Semi annual, chronic medical conditions (chief complaint) Dermatophytosis of footTobacco use disorderContact dermatitis and other eczema, unspecified causeUnspecified sleep apneaUnspecified cataractRoutine Medical Exam 5 Ashutosh Bledsoe. [address] [place], [place], [id number], [place]. tel:[phone] [facility], [address] [facility] [facility], [place], [place], [address], [place] tel:[phone] Nelson COPD (chief complaint)Hyp ertension (follow up) (chief complaint) No Information 5 Ashutoshrolando Blevinsn. [address] [place], [place], [id number], [place]. tel:[phone] [facility], [address] [place] [address], [id number], [place] tel:[phone] Nelson Follow Up of hypertension (chief complaint)Fol low Up of depression (chief complaint)Fol low up medical conditions (chief complaint) Dyspnea Ashutoshrolando Blevinsn. [address] [place], [place], [address], [place]. tel:[phone] [facility], [address] [place] [address], [id number], [place] tel:[phone] Nelson No Information 5 Amador Palacios. [address] [place], [place], [address]. tel:[phone] [facility], [address] [facility] [facility], [place], [place], [address], [place] tel:[phone] Nelson No Information 5 No Information [facility], [address] [place] [address], [id number], [place] tel:[phone] Nelson No Information Ashutosh Rakan. [address] [place], [place], [id number], [place]. tel:[phone] [facility], [address], [address], [place] tel:[phone] Nelson PEE (chief complaint)Chr onic medical conditions (chief complaint) Alcohol abuse, unspecified drinking behaviorUnspecified cataractOther loss of teethAbnormality of gait 5 Ashutosh Bledsoe. [address] [place], [place], [id number], [place]. tel:[phone] [facility], [address] [address], [place], [place], [address], [place] tel:[phone] Nelson Screening examination for pulmonary tuberculosis 5 Amador Palacios. [address] [place], [place], [id number]. tel:[phone] Family History Family Member Type Diagnosis Age At Onset No Information Immunizations Vaccine Date Status Comments Fluzone High-Dose administered Source: Other Provider COVID-19 (Pfizer) administered Source: Ot her Provider Zoster recombinant subunit administered S ource: New Immunization Record COVID-19 (Moderna) administered Source: O ther Provider Fluzone High-Dose administered Source: New Immunization Record Zoster recombinant subunit administered N ote: Per Nephbill Castro, PPT [place] vaccine [place] the [place] ; Source: Other Provider COVID-19 Moderna administered Source: Ot er Registry COVID-19 (Moderna) administered Source: O ther Provider Fluzone High-Dose administered Source: New Immunization Record Pneumococcal polysaccharide PPV23 administered Source: New Immuniza tion Record Influenza, high dose, injectable, split virus, preservative free, Fluzone High-Dose administered Source: New Immuniza tion Record Influenza, high dose, injectable, split virus, preservative free, Fluzone High-Dose administered Note: PPT's brother reports he received the Flu at the [facility] ; Source: Other Provider Influenza, high dose, injectable, split virus, preservative free, Fluzone High-Dose administered Source: New Immuniza tion Record Influenza, high dose, injectable, split virus, preservative free, Fluzone High-Dose administered Source: New Immuniza tion Record Influenza, h igh dose, injectable, split virus, preservative free Fluzone High-Dose 8083-8171 administered Source: New Immunization Record pneumococcal conjugate vacci ne, 13 valent administered Note: Historical ent aidan Parra administered by Arlyn Peters. ; Source: New Immunization Record Zoster administered Source: New Imm unization Record Tdap administered Source: New Imm unization Record PPSV23 administered Source: Other R egistry Tdap administered Source: Other P rovider PPV administered Source: Other P rovider Influenza, high dose, injectable, split virus, preservative free, Fluzone High-Dose 2017-2019Y pending Source: New Immuniz ation Record pneumococcal conjugate vacci ne, 13 valent pending Source: New Immuniza tion Record Zoster pending Source: New Imm unization Record Payers Payer name Insurance type Covered green party ID Authoriza tion(s) [facility] 16 [id number] [facility] 16 [id number] [facility] 16 [id number] [facility] 16 [id number] [facility] 16 [id number] [facility] 16 [id number] [facility] 16 [id number] [facility] 16 [id number] [facility] 16 [id number] [facility] 16 [id number] [facility] 16 [id number] [facility] 16 [id number] [facility] 16 [id number] [facility] 16 [id number] [facility] 16 [id number] [facility] 16 [id number] [facility] 16 [id number] [facility] 16 [id number] [facility] 16 [id number] Social History Type Description Quantity Date Captured Comments Alcohol Use Details Unknown Caffeine Use Details Unknown Tobacco Use Status Smoking Status No Information Sex Male Chief Complaint And Reason For Visit No Information Plan Of Treatment Date Type Action Status Goal Influenza vaccine. Due on Oc due Goal H&P. Due on due Goal Zoster vaccine (2nd) due Goal Eye Exam. Due on due Goal Dental Exam. Due on due Goal Hepatitis C screening due Goal Zoster vaccine (1st) due Goal Colonoscopy. Due on due Goal Unhealthy drug u se screening. Due on due Goal AST (SGOT). Due on due Goal ALT (SGPT). Due on due Goal Zoster vaccine (2nd) due Goal AST (SGOT). Due on due Goal H&P. Due on due Goal Colonoscopy. Due on due Goal Influenza vaccine. Due on Oc due Goal Eye Exam. Due on due Goal Dental Exam. Due on due Goal Hepatitis C screening due Goal Unhealthy drug u se screening. Due on due Goal ALT (SGPT). Due on due Goal Zoster vaccine (1st) due Goal ALT (SGPT). Due on due Goal Zoster vaccine (1st) due Goal Unhealthy drug u se screening. Due on due Goal H&P. Due on due Goal Eye Exam. Due on due Goal Colonoscopy. Due on due Goal Zoster vaccine (2nd) due Goal AST (SGOT). Due on due Goal Influenza vaccine. Due on Oc due Goal Hepatitis C screening due Goal Dental Exam. Due on due Goal Dental Exam. Due on due Goal ALT (SGPT). Due on due Goal Influenza vaccine. Due on Oc due Goal Zoster vaccine (2nd) due Goal Hepatitis C screening due Goal Eye Exam. Due on due Goal Zoster vaccine (1st) due Goal Colonoscopy. Due on due Goal Unhealthy drug u se screening. Due on due Goal H&P. Due on due Goal AST (SGOT). Due on due Goal Dental Exam. Due on due Goal Hepatitis C screening due Goal Zoster vaccine (1st) due Goal H&P. Due on due Goal AST (SGOT). Due on due Goal Unhealthy drug u se screening. Due on due Goal Eye Exam. Due on due Goal Zoster vaccine (2nd) due Goal Colonoscopy. Due on due Goal ALT (SGPT). Due on due Goal Influenza vaccine. Due on Oc due Goal ALT (SGPT). Due on due Goal Dental Exam. Due on due Goal Eye Exam. Due on due Goal Influenza vaccine. Due on Oc due Goal AST (SGOT). Due on due Goal Colonoscopy. Due on due Goal Zoster vaccine () due Goal Zoster vaccine () due Goal Unhealthy drug u se screening. Due on due Goal Hepatitis C screening due Goal H&P. Due on due Goal Zoster vaccine (2nd) due Goal Hepatitis C screening due Goal Eye Exam. Due on due Goal Zoster vaccine () due Goal Colonoscopy. Due on due Goal Dental Exam. Due on due Goal Influenza vaccine. Due on Oc due Goal Unhealthy drug u se screening. Due on due Goal ALT (SGPT). Due on due Goal H&P. Due on due Goal AST (SGOT). Due on due Goal Zoster vaccine (1st) due Goal Hepatitis C screening due Goal H&P. Due on due Goal AST (SGOT). Due on due Goal Influenza vaccine. Due on Oc due Goal ALT (SGPT). Due on due Goal Eye Exam. Due on due Goal Dental Exam. Due on due Goal Unhealthy drug u se screening. Due on due Goal Colonoscopy. Due on due Goal Zoster vaccine () due Goal H&P. Due on due Goal Colonoscopy. Due on due Goal Zoster vaccine () due Goal Dental Exam. Due on due Goal AST (SGOT). Due on due Goal Eye Exam. Due on due Goal Influenza vaccine. Due on Oc due Goal ALT (SGPT). Due on due Goal Unhealthy drug u se screening. Due on due Goal Zoster vaccine () due Goal Hepatitis C screening due Goal Zoster vaccine (2nd) due Goal Zoster vaccine () due Goal Dental Exam. Due on due Goal AST (SGOT). Due on due Goal Colonoscopy. Due on due Goal Hepatitis C screening due Goal Influenza vaccine. Due on Oc due Goal ALT (SGPT). Due on due Goal Unhealthy drug u se screening. Due on due Goal Eye Exam. Due on due Goal H&P. Due on due Goal Eye Exam. Due on due Goal Zoster vaccine (2nd) due Goal Zoster vaccine (1st) due Goal Influenza vaccine. Due on due Goal Dental Exam. Due on due Goal AST (SGOT). Due on due Goal Unhealthy drug u se screening. Due on due Goal Colonoscopy. Due on due Goal Hepatitis C screening due Goal H&P. Due on due Goal ALT (SGPT). Due on due Goal Zoster vaccine (1st) due Goal Hepatitis C screening due Goal ALT (SGPT). Due on due Goal Eye Exam. Due on due Goal Influenza vaccine. Due on due Goal Unhealthy drug u se screening. Due on due Goal Zoster vaccine (2nd) due Goal Colonoscopy. Due on due Goal Dental Exam. Due on due Goal H&P. Due on due Goal AST (SGOT). Due on due Goal Colonoscopy. Due on due Goal Eye Exam. Due on due Goal Hepatitis C screening due Goal Dental Exam. Due on due Goal AST (SGOT). Due on due Goal Zoster vaccine (1st) due Goal ALT (SGPT). Due on due Goal Unhealthy drug u se screening. Due on due Goal Zoster vaccine (2nd) due Goal Influenza vaccine. Due on Oc due Goal H&P. Due on due Goal Dental Exam. Due on due Goal Zoster vaccine (1st) due Goal Eye Exam. Due on due Goal Colonoscopy. Due on due Goal Unhealthy drug u se screening. Due on due Goal AST (SGOT). Due on due Goal H&P. Due on due Goal Zoster vaccine (2nd) due Goal Influenza vaccine. Due on Oc due Goal ALT (SGPT). Due on due Goal Hepatitis C screening due Goal AST (SGOT). Due on due Goal Influenza vaccine. Due on Oc due Goal Eye Exam. Due on due Goal Hepatitis C screening due Goal ALT (SGPT). Due on due Goal H&P. Due on due Goal Dental Exam. Due on due Goal Zoster vaccine (2nd) due Goal Zoster vaccine (1st) due Goal Colonoscopy. Due on due Goal Unhealthy drug u se screening. Due on due Goal Zoster vaccine (2nd) due Goal Unhealthy drug u se screening. Due on due Goal Hepatitis C screening due Goal H&P. Due on due Goal Zoster vaccine (1st) due Goal Dental Exam. Due on due Goal Colonoscopy. Due on due Goal Influenza vaccine. Due on due Goal ALT (SGPT). Due on due Goal Eye Exam. Due on due Goal AST (SGOT). Due on due Goal AST (SGOT). Due on due Goal Zoster vaccine (1st) due Goal H&P. Due on due Goal Hepatitis C screening due Goal Influenza vaccine. Due on due Goal ALT (SGPT). Due on due Goal Dental Exam. Due on due Goal Zoster vaccine (2nd) due Goal Unhealthy drug u se screening. Due on due Goal Eye Exam. Due on due Goal Colonoscopy. Due on due Goal Zoster vaccine (2nd) due Goal H&P. Due on due Goal ALT (SGPT). Due on due Goal Colonoscopy. Due on due Goal Zoster vaccine (1st) due Goal Eye Exam. Due on due Goal Dental Exam. Due on due Goal Influenza vaccine. Due on Oc due Goal AST (SGOT). Due on due Goal Hepatitis C screening due Goal Unhealthy drug u se screening. Due on due Goal Zoster vaccine (2nd) due Goal AST (SGOT). Due on due Goal Dental Exam. Due on due Goal Zoster vaccine (1st) due Goal H&P. Due on due Goal Influenza vaccine. Due on Se due Goal Eye Exam. Due on due Goal ALT (SGPT). Due on due Goal Colonoscopy. Due on due Goal Influenza vaccine. Due on Se due Goal Zoster vaccine (2nd) due Goal Dental Exam. Due on due Goal Colonoscopy. Due on due Goal Eye Exam. Due on due Goal AST (SGOT). Due on due Goal Zoster vaccine (1st) due Goal H&P. Due on due Goal ALT (SGPT). Due on due Goal Eye Exam. Due on due Goal Zoster vaccine (1st) due Goal Colonoscopy. Due on due Goal Dental Exam. Due on due Goal Influenza vaccine. Due on due Goal AST (SGOT). Due on due Goal Zoster vaccine (2nd) due Goal ALT (SGPT). Due on due Goal H&P. Due on due Goal Zoster vaccine (1st) due Goal Influenza vaccine. Due on due Goal AST (SGOT). Due on due Goal ALT (SGPT). Due on due Goal Dental Exam. Due on due Goal Colonoscopy. Due on due Goal H&P. Due on due Goal Zoster vaccine (2nd) due Goal Eye Exam. Due on due Goal Zoster vaccine (1st) due Goal H&P. Due on due Goal Colonoscopy. Due on due Goal Dental Exam. Due on due Goal Eye Exam. Due on due Goal Zoster vaccine (2nd) due Goal Influenza vaccine. Due on due Goal ALT (SGPT). Due on due Goal AST (SGOT). Due on due Goal H&P. Due on due Goal Eye Exam. Due on due Goal Influenza vaccine. Due on due Goal ALT (SGPT). Due on due Goal Colonoscopy. Due on due Goal Zoster vaccine (1st) due Goal Dental Exam. Due on due Goal AST (SGOT). Due on due Goal Zoster vaccine (2nd) due Goal H&P. Due on due Goal Dental Exam. Due on due Goal AST (SGOT). Due on due Goal Influenza vaccine. Due on due Goal Zoster vaccine (1st) due Goal Colonoscopy. Due on due Goal Eye Exam. Due on due Goal ALT (SGPT). Due on due Goal Zoster vaccine (2nd) due Goal Zoster vaccine (1st) due Goal Influenza vaccine. Due on due Goal ALT (SGPT). Due on due Goal Zoster vaccine (2nd) due Goal H&P. Due on due Goal Eye Exam. Due on due Goal AST (SGOT). Due on due Goal Dental Exam. Due on due Goal Colonoscopy. Due on due Goal Zoster vaccine (1st) due Goal Zoster vaccine (2nd) due Goal Dental Exam. Due on due Goal Colonoscopy. Due on due Goal AST (SGOT). Due on due Goal Eye Exam. Due on due Goal ALT (SGPT). Due on due Goal H&P. Due on due Goal Influenza vaccine. Due on due Goal AST (SGOT). Due on due Goal Dental Exam. Due on due Goal Colonoscopy. Due on due Goal ALT (SGPT). Due on due Goal Eye Exam. Due on due Goal Zoster vaccine (2nd). Due on due Goal Zoster vaccine (1st) due Goal Influenza vaccine. Due on due Goal H&P. Due on due Goal Influenza vaccine. Due on due Goal AST (SGOT). Due on due Goal Zoster vaccine (2nd). Due on due Goal Eye Exam. Due on due Goal Zoster vaccine (1st) due Goal ALT (SGPT). Due on due Goal Colonoscopy. Due on due Goal Dental Exam. Due on due Goal H&P. Due on due Goal Zoster vaccine (1st) due Goal Colonoscopy. Due on due Goal Eye Exam. Due on due Goal Influenza vaccine. Due on due Goal H&P. Due on due Goal Dental Exam. Due on due Goal Zoster vaccine (2nd). Due on due Goal AST (SGOT). Due on due Goal ALT (SGPT). Due on due Goal Dental Exam. Due on due Goal Colonoscopy. Due on due Goal H&P. Due on due Goal ALT (SGPT). Due on due Goal Eye Exam. Due on due Goal Zoster vaccine (1st) due Goal AST (SGOT). Due on due Goal Influenza vaccine. Due on due Goal Zoster vaccine (1st). Due on due Goal Eye Exam. Due on due Goal ALT (SGPT). Due on due Goal Colonoscopy. Due on due Goal AST (SGOT). Due on due Goal Dental Exam. Due on due Goal H&P. Due on due Goal Influenza vaccine. Due on due Goal Eye Exam. Due on due Goal Dental Exam. Due on due Goal Zoster vaccine (). Due on due Goal Colonoscopy. Due on due Goal H&P. Due on due Goal ALT (SGPT). Due on due Goal Influenza vaccine. Due on due Goal AST (SGOT). Due on due Goal H&P. Due on due Goal Influenza vaccine. Due on due Goal AST (SGOT). Due on due Goal Eye Exam. Due on due Goal Dental Exam. Due on due Goal Colonoscopy. Due on due Goal ALT (SGPT). Due on due Goal Zoster vaccine (). Due on due Goal H&P. Due on due Goal Colonoscopy. Due on due Goal Influenza vaccine. Due on due Goal Eye Exam. Due on due Goal AST (SGOT). Due on due Goal ALT (SGPT). Due on due Goal Dental Exam. Due on due Goal Eye Exam. Due on due Goal Influenza vaccine. Due on due Goal H&P. Due on due Goal AST (SGOT). Due on due Goal Colonoscopy. Due on due Goal ALT (SGPT). Due on due Goal Dental Exam. Due on due Goal Colonoscopy. Due on due Goal H&P. Due on due Goal Influenza vaccine. Due on due Goal Zoster vaccine (). Due on due Goal Dental Exam. Due on due Goal Eye Exam. Due on due Goal ALT (SGPT). Due on due Goal AST (SGOT). Due on due Goal Zoster vaccine (). Due on due Goal Eye Exam. Due on due Goal H&P. Due on due Goal Dental Exam. Due on due Goal Colonoscopy. Due on due Goal ALT (SGPT). Due on due Goal Influenza vaccine. Due on due Goal AST (SGOT). Due on due Goal H&P. Due on due Goal Dental Exam. Due on due Goal AST (SGOT). Due on due Goal Colonoscopy. Due on due Goal Zoster vaccine (1st). Due on due Goal Eye Exam. Due on due Goal ALT (SGPT). Due on due Goal Influenza vaccine. Due on due Goal Eye Exam. Due on due Goal ALT (SGPT). Due on due Goal H&P. Due on due Goal Dental Exam. Due on due Goal Zoster vaccine (). Due on due Goal AST (SGOT). Due on due Goal Influenza vaccine. Due on due Goal Colonoscopy. Due on due Goal Colonoscopy. Due on due Goal Influenza vaccine. Due on due Goal H&P. Due on due Goal ALT (SGPT). Due on due Goal Dental Exam. Due on due Goal Zoster vaccine (). Due on due Goal Eye Exam. Due on due Goal AST (SGOT). Due on due Goal Eye Exam. Due on due Goal PCV 13. Due on d ue Goal Dental Exam. Due on due Goal Colonoscopy. Due on due Goal Colonoscopy. Due on due Goal Dental Exam. Due on due Goal PCV 13. Due on d ue Goal Eye Exam. Due on due Goal Colonoscopy. Due on due Goal Dental Exam. Due on due Goal Eye Exam. Due on due Goal Influenza vaccine. Due on due Goal H&P. Due on due Goal Eye Exam. Due on due Goal Colonoscopy. Due on due Goal Dental Exam. Due on due Goal PCV 13. Due on d ue Goal PCV 13. Due on d ue Goal Colonoscopy. Due on due Goal H&P. Due on due Goal Dental Exam. Due on due Goal Eye Exam. Due on due Goal PCV 13. Due on d ue Goal Eye Exam. Due on due Goal Colonoscopy. Due on due Goal H&P. Due on due Goal Dental Exam. Due on due Goal Eye Exam. Due on due Goal H&P. Due on due Goal Dental Exam. Due on due Goal PCV 13. Due on d ue Goal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 sleep, + nocturia but able to get back to sleep Tobacco - has smoked since age 15, now down to 3 packs/wk, still wants to continue to smoke Pain - reports R knee pain at times, states knocks it on objects, doesn't want PRN APAP or topical rubSkin - no concernsDiagnoses reviewed. All chronic conditions in this assessment are stable unless stated otherwise.PLAN: - seasonal flu vaccine obtained today; will schedule Shingrix #1 and #2- updated labs to be drawn today and will discuss plan of care for medications based on lab review, also appears to have lost weight- Does not currently want to pursue low dose CT scanning for lung cancer, but nephew will think about it- Care team to discuss plan of care with ppt's HCP when available - referral for retinal specialist prior to cataract procedure - Care team to attempt to obtain updated records from his VA providers, but has been difficult to obtain due to VA record request procedures Annual 74 year old male seen in the clinic for his Annual Evaluation and review of Chronic Conditions. All Chronic Conditions addressed in the assessment are stable unless otherwise indicated. Mr Prasad is here with his nephew Immanuel. The nephew reports they were at the [place] in June-he has brought in copies of lab work performed. Mr Pras[place] lives in [place] in [facility]. He enrolled with [facility] in August of 2014No reported ED visits, hospitalizations or falls in the past 6 months.Seen at the [place] 07/19/[address] Mccullough Podiatry 05/13/2019Immunizations:Influenza vaccine was administered 03/01/2019Pneumococcal Series is completeTdap was administered Zoster administered 10/18/2014Health care proxy completed 05/15/2017 lists Afia Moncada as his primary healthcare agent The HCP was activated 05/22/2017[place] MOLST document dated 05/15/2017 indicates preferences for DNR/DNI, no artificial nutrition. Evaluation at the hospital for acute illness or injury. Short term trils of dialysis and artificial hydration.The ppt is unable to identify any particular goals for the next 6 months. The ppt's nephew is considering whether staying with [facility] makes sense for the ppt. I thought he only had to come here once a year. Semi Annual 73 year old male seen today in the clinic for his Semi-Annual Evaluation and review of Chronic Conditions. He is here with his nephew DavidMr. Prasad resides in the community in housing which is supportive. He enrolled with [facility] in August of 2014. Mr. Prasad is also seen by [facility] providers in [place], [place].Over the past 6 months the ppt has not needed to be seen at the ED, he has not been hospitalized or had any reported fallsSeen recently by the VA and had an ultrasound-no records available from the ppt or family.Has an appointment with the [facility] for [facility] in March 2019.Immunizations on file include:Influenza vaccine administered 11/2017. ppt will receive this season's influenza vaccine today int clinicPneumococcal series is completeTdap was administered 10/18/2014Zostrix vaccine was administered 10/18/2014Healthcare proxy completed 05/15/2017 lists Afia Moncada as his primary healthcare agent. The HCP was activated 05/22/2017[place] MOLST document dated 12/25/2014 indicates preferences for DNR/DNI. No NIPPV, no artificial nutrition. Mr. Prasad would want to evaluated at the hospital for acute illness or injury, and trials of dialysis and artificial hydration.Gaols are to remain int community, stay out of the hospital, breath more easily Annual 73 year old male seen in the clinic for his Annual Evaluation and review of Chronic Conditions. Mr. Prasad resides in [facility] in an [facility] is [facility] that is responsive tothe needs of Veterans. he enrolled with [facility] in August of 2014.In the past 6 months, the ppt has not been sent to the ED or been hospitalized. There has been report of recent falls 1-2 days prior and an episode of fainting per the ppt's nephew Matthew when at another family member's home about a month ago. No injuries have been reported.Seen by [place] medical personnel-no records avaialble. The nephew reports that he has been started on a new blood pressure medication-not sure what the medication isHas an appointment with a Non Destructive Evaluation Specialist 09/01/2018Immunizations on file include:Influenza vaccine administered 03/31/2018Pneumococcal series is completeTdap administered 10/18/2014Zostrix vaccine administered 10/18/2014Healthcare proxy completed 05/15/2017 lists Afia Gilmore as his primary healthcare agent The HCP was activated 05/22/2017. [place] MOLST document dated 08/29/2014 indicates preferences for DNR/DNI, no NIPPV, no artificial nutrition. WOuld want transfer to the hospital for evaluation of acute illness or injury, and short term trials of dialysis and artificial hydration. Annual 72 year old male seen in his home for the Annual Evaluation and review of Chronic Conditions. Mr. Prasad resides in the community in housing tangentially connected to support of Veterans in [place], [place]. The ppt has mental illness, PTSD cognitive decline. He rarely leaves his apartment. Two brothers have been involved this past 6+ months.Ppt enrolled with [facility] in August of 2014.No recorded ED visits, hospitalizations or falls in the past 6 months.Neuropsychological evaluation performed September [address] Esther Larry PhD, Clinical Psychologist, at the request of [facility].Dx of Major Neurocogntive Disorder and Unspecified Trauma-and Stressor-related disorderNo other specialty appointments on record.Immunizations:Influenza vaccine administered 02/06/2017Pneumococcal series is completeTdap administered 10/18/2014Zostrix administered 10/18/2014Healthcare proxy dated 05/15/2017 lists Afia Moncada as his primary healthcare agent. The HCP was activated 05/22/2017. Since that time we have been able to locate and engage family. Working of possible change in healthcare proxy status to the ppt's family. [place] MOLST document completed 09/08/2014 indicates preferences for DNR/DNI, no artificial nutrition, short term use of dialysis and artificial hydration and evaluation at the hospital for acute illness or injury. Annual 72 year old male seen today in his apartment for his Annual Evaluation and review of Chronic Conditions. Mr. prasad resides in [place] at the [facility] which is afl[facility]. [facility]The ppt has essentially been homebound over the past 5 months due to issues related to his housing and mental health. Family recently are more aware and involved with the ppt care and are actively engaged with [facility] staff regarding appointments. The ppt is in the process of pursuing potential services through the VA including the possibility of more formal housing and healthcare.The ppt has not had any ED visits, hospitalizations or reproted falls inthe past 6 months.[facility] currently has health aid services daily to ensure the ppt is eating at least one meal daily.No recent podiatry , dental or vision visits on file. Most likely d/t to ppts unwillingness to leave his residence.Immunizations on file includeInfluenza vaccine administered 02/06/2017Pneumococcal series is completeTdap administered 10/18/2014Zovirax vaccine administered 10/18/2016Health care proxy on file completed 05/15/2017 lists Afia Moncada (VA case assistant) as his primary health care agent. The HCP was activated 05/22/2017[place] MOLST document was completed 09/08/2014 and indicates the ppt's preferences for DNR/DNI, no artificial nutrtion, no nIPPV, short term dialysis and artificial hydration. He would want evaluation at the hopital for an acute illness or injury.Weight obtained today.ppt was fully clothes with shoes on. Scale read 155.6 pounds. If allowing approximately 5 pounds for shoes and clothing, the ppt's weight is at 150 pounds which would be a 22 pound increase since our last recorded weight. Home visit I visited home d deanna to multiple concerns.-Microwave is working, I plugged it in, set clock, verified fucntioning-There was some/scant food in apt, some was provided-There was abundant garbage in the apt (in tioed bags), I threw out whatever I could. There remains a moderate amt of cans and other containers-He is sleeping on stripped bed. I looks at seams of the plastic/blue impregnable surface, I do not see any bed bugs, albeit not definitive-He denies any bedbug bites, I lookes at arms/legs/torso, I see no bites-Clothes are somewhat soiled-T.P was provided, there was none in apt -He was amenable to us speaking with Afia Moncada and his brother, Godwin, though he doubted brother would be responsive-I spoke to him about inadequacy of current living situation, he circumlocutes re: Soldiers's homeHe is NADChronic dyspneaWill d/w team Annual 71 year old male seen today in the clinic for his Semi-Annual Evalution and review of Chronic Conditions. Immanuel lives independently inthe community in an aprtment in [place].He enrolled with [facility] in August of 2014.He visited the [facility] in [place] last week. He states that it would be okay, I just don't know about the $600.00 Will update SW to investigate further.No reported ED or hospital visits in the past 6 months. No reproted falls inthe past 6 months.Last specialty appointments were over one year ago.Andrea continues to pick which medicatins he will take on a regular basis.He has agreed to have his lab work done today.Regular days are --Thu.Immunizations of file include:Influenza vaccine administered 02/07/2016. He is open to receiving this season's influenza vaccine.Prevnar administered 10/18/2014Tdap administered 10/18/2014Zoster administered 10/18/2014No healthcare proxy on file at the time of this visit.[place] MOLST document completed 09/08/2014 and indicates preferences for DNR/DNI. WOuld accept transfer [facility] for evaluation of acute injury or illness. Not interested in artificial nutrition, but would be open to short term dilaysis and short term. artificial hydration.No new concerns at the time of this visit.He does report pain with hsi breathing If I walk too much Cognitive Issues 71 year old briana desir seen in clinic today per the request of his VA case assistant to re-evaluate cognitive status.Andrea has no specific concerns.He receives Meals 4 days a week and supplements with sandwiches and other cold foods.Denies any difficulty breathing-taking his scheduled respiratory medications and uses the ProAir inhaler as neededNo new onset of pain or discomfort reported.Mentions that he has a routine walk route, where he sits and rests at specific places in the [facility].Andrea continues to smoke cigarettes when he can afford to purchase them. Annual Late entry for atient is seen in his home, today, due to the fact that he has not and will not comment center with any regularity. Additionally there is no way to make contact with him as he does not have a phone. His engagement in care is quite minimal. He has declined to take all medications except for respiratory ones. He has historically not wish to come in to the Center although today he says he is contemplative.By and large he has no specific complaints. He says he is overall feeling decently. He says he is walking better. He feels that his lungs are reasonably stable. He still has significant limitation due to breathing. He says he has not gone out much but now that the weather is getting better he intends to. He has made a friend in the building, the gentleman. I will I was there and offered him lunch.He continues to get Meals on Wheels.He has had no hospitalization. No significant change in his overall medical condition. He is had no falls although he apparently slipped on the ice but caught himself.He reports fairly minimal contact with his brother.He has no site of the right eye, he has a known cataract, he is not sure if he wants surgery. He speaks of barriers that in fact do not exist.Social history: Unchanged. He continues to smoke although precise amount is unclear.-He denies any alcohol-He still has no proxyMeds reviewed:Inhalers only, nacho hes eems to have topical steroid,I am unsur where from Semiannual Patient was seen in his home for her semiannual evaluation. He has been fairly reluctant to come into the program.He has thankfully been free of any hospitalizations in the interval. He has not fallen. He did have an episode during which he indicated he was potentially feeling intent for self-harm however he was checked on by the police department and felt to be doing well. There have been no repeated utterances of that nature.The exact nature of his cognition and perceptions are often very difficult to ascertain. He speaks, and has for as long as we have known him, with a certain vagueness and likely unrealistic persecutory delusion. He has long been concerned with housing. In spite of the fact that his remainder of the a housing and in fact moved to the new facility. He remains convinced that as he meets certain challenges of the bars moved and he continues to have difficulty.Among other challenges is he has not been willing to take medications consistently. He often refused to have home care provide them/accept meds. At one of our recent visits he and I negotiated that we would focus on his major symptom complex, namely his dyspnea. As such we stopped the oral medications he was not taking and focused on the inhalers. He still is not terribly consistent and adherent with medications. I found his Advair inhaler in its box. Although it has clearly been used he says he often forgets to take it. Additionally, his albuterol was out and he did not appear to have a backup 1. He does appear to be using the Spiriva (I called the pharmacy from his apartment and asked that they deliver his medications).He says his breathing is good on some occasions, worse at other times. He does on occasion walk fair distances. It is unclear to me with what regularity he takes public transportation.In spite of getting Meals on Wheels he has expressed some concern regarding food insecurity. Some donations of both food and close have been made to him in the past. Home care and dietitian have very kindly increased his Meals on Wheels to make sure that his needs are met.He reports the past pruritus was quite a bit better. He is not having particular the significant pain.He remains relatively socially isolated. He does not speak with anyone in his family. He regrettably cannot identify healthcare proxy. He does interact with peers to some degree.ROS:Rare headachesVision is serviceable but he also has cataracts and he is not anxious to address.He denies oral painHe is no dysphagia by his reportHe denies any chest pain. He does have some chronic dyspneaHe denies any current abdominal complaintsHe denies any dysuria or obstructive symptomsHe has limb length discrepancy and significant gait abnormality yet use no device and reports he is no pain. He does have specialty shoes.He has had loss of weight. We discussed this at length and I told him of my concern for potential malignancy in chest or other. He has not been keen to have any workup. I do think that a palliative/supportive approach is reasonable however difficult in the absence of partners in his care.Physical examination:Well-developed, older gentleman in no acute distressHe is reasonably well-groomedBlood pressure somewhat elevated at 150/82 (off all antihypertensives.Per his preference), respiratory rate is in the range of 18-20, oxygen saturation is 97% on room air at rest, pulse is 73.He overall appears to have lost weight over time although I do not have the precise measurement.He has slight temporal pinchingScalp overall appears normalHe appears to have cataractous changes bilaterally, sclerae anicteric, he has slight diversions of OD. Vision is functional grossly but is certainly impaired to degree.Nares grossly patentMucous membranes decently hydrated and free of lesions.Chronic nasal deviationEdentulousNo obvious JVD or thyromegaly abnormalityHeart quite distant, seems regularLungs were surprisingly free of adventitious breath sounds today. He is diffusely diminished. There is no wheeze.Abdomen grossly soft and nontender. No obvious mass. No guarding or reboundExtremities are without clubbing or cyanosis. There is trace lower extremity edemaToenails are grossly hypertrophiedSkin is somewhat dry but overall improved.He does not have lesions to back/abdomen/lower extremities. There is a small healed/healing abrasion to the proximal right hu. His legs are hairless. Pulses are diminished. Feet appear to be decently perfused. Sensation to light touch is grossly intact. Some flaing on the bottom of feet.Speeches recently fluent and intelligibleThere is no obvious evidence of attention to internal stimuli. His thought content, and aforementioned, is on the more negative side and sometimes filled with concerns that I suspect are without basis.Gait is abnormal due to limb length discrepancy, at the very least. He moves all extremities with good strength. chronic conditions f/u resp status Patient was not scheduled to be seen by provider today. Per our last visit he apparently did decide to come in. The goal this was firm to socialize and to have the opportunity to speak with other team members. He presented to clinic assuming he was to be seen, as such seen.He has no specific complaints. As is usually case, he is quite vague on details. He suggests that he is still not taking the Advair a regular basis. He may be taking the Spiriva on a regular basis. He uses the albuterol as needed.He suggests that his breathing is neither worse nor particularly better. It varies per day. He is not having appreciable pain at the moment.ROS is limited:No headachesNo chest painDyspnea variableNo GI complaintsNo dysuriaVital signs notedWeight and weight trend notedWell-developed, slender middle-aged gentleman in no acute distressClean-shaven todaySclerae anicteric, likely cataractsHeart sounds to be regularLungs are diffusely dull. There is no wheeze. There is not muchBy way of adventitious breath soundsAbdomen is soft and nontenderExtremities are without clubbing, cyanosis or edemaHe has a asymmetric gait due to limb length discrepancy VS other etiologyHe is awake, alert, poor eye contact, difficult to engage socially COPD,wt loss, poor a dherence to follow up Patient was seen in his home as he has largely dropped out of care. Patient had been coming with regularity however stopped. He is also not been excepting his medications from home care for the past roughly month. On at least one occasion he was fairly angry and declined to allow home care in.Patient is moved to the [facility]. He still has, what he admits, are somewhat irrational concerns about being evicted, paying his rent and time and the like. He finds the fact that the store is further to be difficult. He does get Meals on Wheels. He seems focused on the difficulties he will have come wintertime, getting to the bank and the like. I mention the possibility of him speaking to the bank so that they pay his rent directly. It is unclear to me if he will do so.We spoke about his medications and his goals yet again. As he has for as long as I have known him he reported that he feels that he is close to the end of his life. It does not seem to particularly concerned him. He regrettably has not seen anyone in his family for nearly 2 years. He is not particularly keen to take oral medications as he does not feel they're helpful to him.Patient does wish to take his inhalers and seems open to my idea of focusing on the sole on longevity per se but rather quality of life while he is alive. Try to identify primary issues being his dyspnea and secondarily his anxiety and probable depression. He is not particularly keen on doing anything about the anxiety or depression. He does not wish to try medication, he does not wish to see a psychiatrist, he does not wish to have counseling. He is open to trying to improve his breathing. In spite of his identification of this as his primary difficulty, he continues to smoke. He has lost a great deal of weight, he is unsure why. We discussed the renal possibilities of malignancy among others. He also discussed the possibility that depression is part of that.He suggests that most days he has enough food although he worries what would happen if Meals [employer] Wheels did not deliver. He has a very limited supply of canned food. He has some cereal. He has plates but no pots. He does have a can polystyrene bead molder.ROS:No headacheVision is poor yet he does not wish to see ophthalmology. He he almost certainly has a cataract that could be remediated but he is not interested in considering itHe has no oral pain and no reported dysphagiaHe has no chest painHe has significant dyspnea at rest and with exertion. He does not appear to have increased sputum, fever or other indicators of acute illnessHe denies any GI complaintsHe denies any urinary complaintsHe seems to acknowledge that he has irrational concerns and worry about Thursday issues, mainly surrounding his housing.He suggests that the pruritus is better, now affecting fairly exclusively his trunk.He acknowledges having lost a fair amount of weight.Physical examination:Well-developed, middle-aged gentleman who looks a bit older than his stated ageBlood pressure 122/70, pulse 82, room air oxygen saturation 96%. He was afebrile. Respiratory rate was likely 22 at rest. Interestingly, in spite of appearing dyspneic at rest he was able to walk with me to the front of the building, bend over and worm picker a bag and do other such things.He is slightly unkempt with longish hair, a bushy taylor and somewhat ill fitting clothes yet not malodorous.Sclera anicteric, there appears to be a cataract in OD.Mucous membranes are moist and free of lesions. Tongue slightly coatedNo obvious cervical adenopathyHeart sounds to be regular but distantLungs notable for diffusely diminished breath sounds, occasional wheeze, patient appears significantly dyspneic at rest. There are no overt retractions and he is not tripoding. He is able to speak and reasonably full sentences and as aforementioned is able to walk at a reasonable pace.Abdomen is grossly soft and nontenderThere is not much rash actually visible to the trunk or to the lower extremities on limited examinationHe does not have edema, he does not have clubbing he does not have cyanosis.He is awake, alert, attentive. He is able to engage in a rational conversation. He is able to show me items in his home and can locate everything. His thought processes are relatively linear even if he has some unusual ideas although none paranoid. Some are slightly irrational, perhaps even delusional but he seems to acknowledge this. Annual Patient is seen today for annual evaluation. He has had a fair amount of evaluation/supervision by home inspector. He generally takes somewhat less than half of his weekly medication doses. It is unclear with what regularity he takes his inhalers.His primary concern, as it has been since I met him, is issue of housing. He says that they may move from current housing to new [facility] within the next week although there have been prolonged delays. By his report most of his concerns/dissatisfaction/anxiety surrounds the initial housing. He is not particularly keen on the new housing but does not have clear alternatives and certainly intends to move.He is difficulty saying whether he is depressed. He is not anhedonic per se. He enjoys watching TV and conversing with fellow veterans. He says he is mostly disturbed surrounding the issue of the housing.Activity remains limited. He says he is still able to ambulate a local store which he otherwise has. He generally needs to stop once for rest. He rarely uses his albuterol when he is dyspneic when walking. He does not have chest pain.He continues to smoke roughly a quarter of a pack per day. He has no interest in quitting.As he was obviously itching/scratching during the examination I asked him about it. His contention is that has not changed over multiple years. It is not immediately clear what he is using now. He did at one point use topical course corticosteroids he says with some success. My recollection is that the sole area that was bothersome that time was the left posterior back. He says that once he is dressed and moving it does not particularly bother him.He reports that right knee pain and right hip pain are overall somewhat better and acceptably controlled. He was offered corticosteroid injection and has no desire to have it for knee pain. He generally does not take anything for pain. He doesn't quantify the pain but says it is acceptable to him.ROS:No perceived weight changesNo headachesPoor vision, says he saw ophthalmology recentlyDenies oral pain or dysphagia. He is edentulous, he has no interest in denturesNo odynophagiaNo chest painChronic dyspneaNo significant abdominal complaints, no nausea, vomiting, diarrhea or constipationHe does have 1-2 episodes of nocturia nightly. Feels he is emptying his bladderDoes not feel he has focal weakness or sensory lossMood is as aforementionedLabs reviewedPhysical examination:Vital signs are notedHe is normocephalicPoorly trimmed beardEdentulous, no obvious oral lesionsNo cervical adenopathy or thyroid changeHeart is distant, sounds regularLungs are diffusely diminished. There is no expiratory wheezing. does not clearly have prolonged expiratory phase. No obvious ralesAbdomen is grossly soft, nontender, nondistended.No suprapubic tendernessExtremities at most have trace edema, no clubbing, no cyanosis. There is no foot deformity.Toenails are reasonably well trimmed. Pulses are difficult to palpate. Feet are well perfused.Decreased hair distribution and legs and feetSee diabetic foot exam belowPatient is awake, alert, attentive. He is taciturn as usual. Affect is flat and dysphoric. No obvious delusions or hallucinations. Answers are short on detailHe has significant xerosis to lower extremities. He has extensive scratch petersen creating confluent areas of mild erythema (not infectious) to upper and lower back, left medial thigh, abdomen, generally sparing chest. I do not see any primary lesions or bites.He is able to dress himself, receptive and expressive language overall appear intact, he moves all extremities with fair strength. There is no obvious focal weakness.Arthritic changes both knees, walks with limp-limb lenght discrepancy, doubte Tendelenburg gait general f/u Patient did not have scheduled appointment today however presented to clinic area. He was under the impression that he might have an appointment so he was seen as he is overdue for follow-up. Additionally, he was noted to be somewhat more dyspneic than his baseline although baseline does not particularly good.Patient says that perhaps he is coughing a bit more. Scant sputum. He never really endorses shortness of breath, reports he is using scheduled inhalers regularly and has a rescue inhaler. Feels that cold weather addition more trouble. It is still walking to local stores.His social other complaint is right knee pain. He reports his had pain for several weeks. If pain symptoms primarily at night when he turns over in bed. He does not take anything, including Tylenol for it nor does he want anything for it. He says it is not impairing his walking and does not tend to be painful by day. The pain is localized to the right medial aspect of his knee.Patient tells me that the facility he is currently living in will be moving to another facility on [facility], he is unsure of the precise move date and the new address. He circumlocutes bit as to whether he is worried about housing or not. This is pretty consistent theme over his many months here.He does say he is somewhat bored. When he is here he does not opt to engage with the programs. He reports he watches affirmative television and engages in conversation with his cohabitants. Regrettably, he continues to smoke a pack a day. He feels a significant improvement but has no intention on cutting down further.I asked him feel explicitly if he thought he was depressed. He says he believes so but that it is dependent upon his housing situation which has been his usual report for many months. I told him that I was unsure if this was the complete explanation for this situation and that often people are helped with psychological treatment and/or medications for depression. He is quite disinterested in both.ROS:No fallsNo hospitalizationsNo headachesEssentially sightless in the right eyeHearing fairNo dysphagiaNo dental painNo chest painShortness of breath as aboveNo GI complaintsNo complaintsSkin is feeling fair. No appreciable pruritus nowPhysical examination:Wt back up to previous baselineWell-developed, middle-aged gentleman in no distressHis breathing is somewhat noisy and he is somewhat tachypneic at timesHe has regrown his taylor and looks slightly unkemptNormocephalic and atraumaticRight pupil has significant opacity likely consistent with cataract. Left pupil reactive. Sclerae anictericMucous membranes moist. I don't see mucosal lesionsNose cervical adenopathyHeart sounds to be regular, quite distantLungs do not have much problem with wheezing but do have coarse rhonchi bilaterally. Respiratory rate is elevated. He is not in distress per seAbdomen soft, nontenderExtremities free of clubbing or cyanosis. He has essentially no to trace lower extremity edema.There is significant xerosis of the lower extremitiesHe was not wearing shoes with lifts. No significant asymmetry of gaze.There are arthritic changes to both knees. There is likely a moderate effusion on the right. There is no erythema. It is not warm to touch. The area of reported tenderness seems to overlie the tibial tuberosity although there is no tenderness to touch. Similarly, the knee is not particularly tender to touch. F/U multiple medical issues Ida ent seen today to follow up multiple medical issues. Of note, the patient apparently enrolled with [facility] on December 23. We are unaware of this to one to 2 days ago. I asked him if his intent was to stay with us, he indicated his preference is to remain with [facility].I exchange correspondence with [facility] staff, was told that PCP was appointed but unclear if he saw him. The patient believes she saw someone once. He is quite vague on details. He was apparently also set up for dental and ophthalmology visits. Patient has signed to rejoin [facility] effective 03/25/15.Overall he says he is feeling pretty well. He says his breathing is good. He is eating reasonably well. No significant headaches or lightheadedness. The rash to his flank is largely resolved. He actually has no specific complaints. He is still worried about housing although unclear that he has any reason to be worried.ROS:Largely as above.Neck poor visionNo dental pain although whenever minimal residual dentition has is in poor shapeNo chest painShortness of breath reasonably controlledSignificant GI complaintsMinimal weight loss, continues to decline to see GI or have screening CT of chestNo complaintsHas some chronic hip/knee pain, predominantly on the right.Asymmetric gait, hard to tell if antalgic or leg length discrepancy or predicated upon weakness (doubtful true Trendelenburg)Examination:Well-developed , middle-aged older gentleman in no distressHair is somewhat long and he is seemingly regrowing his beardRight pupil is largely opacified by likely cataract. There also appears to be slight lateral deviation. Nares appear to be patent.Oropharynx has moderate erythema of the soft palate. There is minimal residual dentition, especially can see one tooth on either side of the lower jawHeart sounded to be regular, somewhat distant, hard for me to comment on any murmur or additional heart sounds.Lungs were overall a bit dull however free of wheezes or adventitious breath soundsAbdomen is soft, nontender, nondistendedExtremities do not show clear clubbing, no cyanosis and as best I can tell no significant lower extremity edema.There is currently no lesion to the lateral aspect of his trunk (rash)He is awake, alert, talkative. Actually smiled when describing some misadventure. Follow up HTN, CKD, DM Patient s een today for general follow-up of his hypertension, COPD, pruritus and overall well-being. Patient says he feels he is overall doing a bit better. He has his medications and is taking them on a regular basis now that they're delivered. I asked him if his breathing was any different as he looked a little bit dyspneic today and he said he felt he was doing well.Hypertension is entirely asymptomatic. He has no headaches, vision changes, chest pain. He says the pruritus to his left flank and back has largely resolved. He is applying topical steroids.He says mood is stable. He does not feel it is significantly improved but certainly no worse.He had no specific complaints. I explained to him that he had some significant proteinuria. We spoke a bit about the potential causes. I told him of the plan for additional evaluation here and the potential for him to see nephrology. He seemed a bit dejected by this. He did not wish to ask any additional questions.REVIEW OF SYSTEMS:He denies headache, change of vision, acute weakness. He has no dysphagia. He has no chest pain. He has chronic dyspnea both on exertion and at rest. He is able to eat. He has no abdominal complaints currently. He has no urinary complaints currently. He reports he is in no pain currently. He says he takes a pain pill. I pointed out that we do not actually prescribe any currently and he says [facility] He does not recall what it was. I asked him to write it down for his next visit.PHYSICAL EXAMINATION:Vital signs as below.Normocephalic, atraumatic.Appears to have right-sided cataract. Likely slight lateral deviation of the right eye.No oral lesionsHeart sounds to be regular with S1 and S2., DistantLung sounds are somewhat diffusely diminished perhaps more so in the left base. No wheezeAbdomen, soft, nontender, nondistended.Extremities are without significant edema. I actually do not see clubbing and there is no cyanosisNeurologically the patient is grossly intact. He moves 4 extremities. Face is symmetric. Speech is fluent.Psychiatrically the patient is somewhat constricted and his affect. He does not appear any more dysphoric. He did appear slightly brighter last week.Labs are reviewed Sep-25-2015 Semi annual, chronic medical conditions Semiannual examination for this pleasant gentleman who is extremely hard to to engage in care. He is difficult to reach as he does not have a phone. [facility] He has essentially no community supports. In addition, it is very hard to know how invested he is in his well-being, often having said in the past that he anticipates he will in the near future.While the patient assures me that he is getting his medications with regularity, I am rather skeptical. He assures me he is taking his blood pressure medications however, as best I can tell he should have run out of them along ago. He is always nearly impossible to get a definitive answers from with regard to his ability to get to [facility] and worm [facility]er medications. I delivered them some months ago. He is amenable to me transitioning his prescriptions to a pharmacy that will deliver them to his abode.He suggests that perhaps he has run out of some of his inhalers. He says that with the change of weather his breathing has been a bit worse. He does not complaining of anything else specifically although when I ask about a rash he indicates that he has some pruritus on the left side of his body. To the best of his knowledge [facility]. He says that they sprayed for cockroaches some months back but is unaware of any other infestations.Again, no spontaneous complaints however when I asked to see his feet he indicates that his shoes are somewhat tight and at times uncomfortable. He has a minimal chronic cough. He continues to smoke approximately a pack a day which he notes is down quite a bit from his peak. He is not particularly interested in stopping.Says he sleeps well. No regular headaches. No dizziness. He is essentially sightless in the right eye. He has no dental pain although does have significant deterioration in dental well-being. No dysphasia. No chest pain. No abdominal complaints. No complaints. He does not report claudications but does have pain on the dorsum of his foot on occasion, he attributes it to tight shoes.PHYSICAL EXAM:Vital signs as belowI repeated blood pressure on the left arm and it was 180/80Well-developed gentleman who appears older than his stated age. He has regrown his rather bushy taylor.Normocephalic, atraumatic. No cervical adenopathy.Right eye has visually significant cataract. Seems to have preserved the vision in the left eye.External nose unremarkable. Oropharynx free of discernible lesions. He does have some broken teeth.Heart sounds are somewhat distant, seem to be regular, I cannot appreciate a murmur.Lungs sounds are diminished bilaterally. There is no wheeze. There are very scanty rhonchi.Abdomen is soft, nontender, nondistended. No obvious hernia or organomegaly. No clear ascitesExtremities: Upper extremities are free of cyanosis or edema. I do not believe he has clubbing. Lower extremities similarly do not show cyanosis or clubbing. There is perhaps trace edema. There is virtually no hair on the lower extremities.Skin/nails: Incomplete examination however there is a large area on the left flank where there are serpiginous tracts that appeared to be most consistent with scratch petersen. I do not see any burrowing consistent with scabies. I do not see distinct bites consistent with other insect. Many of his toenails are quite hypertrophied (long) there is are thickened and likely mycotic. They are darkened. There are no open areas to the feet however there is what still appears to be persistent tinea pedis particularly to the right foot.Diabetic foot examination: Appears to have sensation to monofilament. Dorsalis pedis pulse on the left 2+, right palpable but faintNeurologically the patient is awake, alert. He is able to follow directions. He is able to carry on a quite normal conversation. He moves all extremities with fair strength. Gait is asymmetric although it appears to be due to leg length discrepancy or other orthopedic issues (though could not entirely exclude Trendelenburg gait, I am doubtful)Psychiatrically patient is extremely hard to gauge. He does not express overt anhedonia or depressive symptoms although at times says he is not extremely invested in his well-being and longevity. There does not appear to be any hallucinations or delusions. Thought processes are relatively linear. He is often rather vague and is difficult for me to tell if he is evasive, less likely confabulating or simply uncertain.With regard to his housing, which has been a major source of anxiety for him in the past, he reports for the time being there are no imminent issues. He alludes to them building a new facility however reports that it is not completed yet. He again expressed absolutely no interest in going to see [facility], particularly due to the fact that he would have very little money left.He remains entirely estranged from his family. COPD Regrettably, as usual is extremely hard to get concrete and accurate answers. What medications he is actually taking is always in the history.His greatest concern, as always, his housing. He apparently left the [place] housing and attempted to live with his sister. I cannot get a coherent answer as to whether he spent any time on the streets during that incident however he reports that last week he decided to try to sleep outside to get used to it as he is in the perpetual expectation of being kicked out of the housing. It is unclear if there is any factual basis of this. Additionally, he speaks of his finances being a mass. He talks about social security being stopped. I again strongly encouraged consideration of [facility] Block and extolled the fact that he would have meals, air conditioner and other such things. I stressed repeatedly that living on the street is not really a viable option.He overall says that his breathing is feeling better. He still is smoking a pack a day. He reports that he used the prescribed cream to his abdomen and feet and it was better however after running out of it he continues to have pruritus and is using unknown creams (suggest perhaps OTC moisturizer).No other specific complaints. Hypertension (follow up) hypertension Follow up medical conditions See n today to follow-up for several medical conditions. As before, he is a somewhat challenged historian likely on the basis of some degree of cognitive impairment. There is no ancillary source readily available. There is a great deal of ambiguity regarding medication, what he actually has in his possession versus what is in the pharmacy etc. Getting to the pharmacy is slightly difficult for him however he is not open to alternate arrangements at the moment. Housing remains a major concern. He was able to speak to the social work professor again today and she is currently exploring options with him, including considerably assisted living. As before, housing seems to try to fair amount of anxiety and doubt. Says he often fears being evictedHas had no lightheadedness per se. I am cautiously optimistic that he is actually changed his lisinopril dose.He tells me he stopped smoking some days ago. He was using nicotine patches he had. He had a minor local reaction so he does not have one on at the moment. He was not amenable to me prescribing lozenge or other form. Says he has patches at home currently.Has had some pruritus to lower abdomen and on the right great toe/interspace. Has been using soap/toothpaste or whatever else he could lay his hands on. He has noted no rash.Says his breathing has not been quite as good. It is quite unclear what he is actually taking by way of inhalers. Says he was out of the albuterol. A bit circumspect as to whether he has other medications. No particular cough or change in sputum. As best I can tell does not have orthopnea, though again very hard to get a firm answer. Has no air conditioner, does have fan Follow Up of hypertension Follow Up of depression depression PEE Chronic medical conditions Mitzi pineda in today for PEE. He is able to provide some medical HX. I was able to glean some HX from [place] notes.A recurrent theme through conversation is housing. He is in [place] ,has been for ~2 yrs. He likes it however anxious to have a place of his own. Implies that it is not oysterman housing. He is looking at apartment in housing. I discussed AL and SW has kindly seen to explore options. He has been sober (ETOH) since entering housing.He is largely estranged from family. Has a half sister he plans to try to go see. Never and says he has few close friends.The level of support at housing is not clear. He reports he shops and cooks for himself. Gets MOWs. Reports he is able to walk to store. Also says he takes bus to [facility], for pharmacy.Has appreciable VIRK, which limits ambulation. He reports needing to stop at ~150ft, then continues on. He suggests this is stable. He does not have CP. He does not tend to use the albuterol. No other associated symptoms.He reports he has lost ~40lb over some time period. He believes it is due to his food intake and increased activity. Does not recall ever having c-scope or screening for other malignancies. rved in [place].I asked about PTSD. He says he believes he has it. Vigilant at times, vivid dreams.Se I did a PAQ screen and quite positive. Again, he suggests that he feels much of his mood relates to housing. He says he at times feels he a loser . No SI.He has no teeth and has not seen dental in a long while. Has trouble with some harder foods. No chocking. [facility] but [facility] that he recalls. Poor vision OD-he says due to glaucoma, notes report hyper-mature cataract. He recalls bulk of meds, he says he takes himself. Recalls only 2 inhalers, does not believes he is on ICS. Smoking and no interest in quitting. He is aware of the DM. he does not have a glucometer and does NOT want one (despite my suggestion he learn to use for emergencies, even if he does not use it for monitoring regularly Reports he has had little screening and is not interested (C-scope, JOSETTE, PSA etc.). Is open to Podiatry/Ophtho/Dental. Instructions Date Instruction Additional Infor desiree Was actively smoking per notes prior to hospitalization.No tobacco use since Hospital admission. Related to Tobacco abuse Ppt unchanged.No sandy dence of discomfortCont supp care. Related to Comfort measures only status Presently no exac.Ta sylvia no pulmonary medicines. Related to Chronic obstructive pulmonary disease, unspecified COPD type Ppt cantankerous. + anti social behavior which is his baseline. Is eating and drinking well.Supportive care. Related to Major depressive disorder, remission status unspecified, unspecified whether recurrent Ppt unchanged.No sandy dence of discomfortCont supp care. Related to Comfort measures only status Evidenced by gen mus jaja and temporal wasting. Ppt is eating and drinking. 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 Related to Protein-calorie malnutrition, moderate Failed voiding trial s @ [facility].Per Tere notes:Per [facility] notes.Urinary RetentionHistory of BPHs/p 2 straight caths for bladder volume of 350 and 1100 initially during admission with Ponce placed by Urology on 11/26. US Bladder 11/26 shows appropriate positioning of Foleys/p TOV 12/03 with bladder scan showing 500cc urine despite voiding, Ponce replaced on 12/04. Elevated SCr 1.1->1.3 from 12/02 to 12/05, not meeting diagnostic criteria of KEE, possible due to post-renal (obstructive) etiology in setting of delayed Ponce placementPlan:Cont w/ indwelling Ponce catheter.No consideration for further voiding trials, giovanni as Ppt unwilling to take meds to treat BPH. Related to Benign prostatic hyperplasia with urinary obstruction Failed voiding trial s @ [facility].Per Andradesj notes:Per [facility] notes.Urinary RetentionHistory of BPHs/p 2 straight caths for bladder volume of 350 and 1100 initially during admission with Ponce placed by Urology on 11/26. US Bladder 11/26 shows appropriate positioning of Foleys/p TOV 12/03 with bladder scan showing 500cc urine despite voiding, Ponce replaced on 12/04. Elevated SCr 1.1->1.3 from 12/02 to 12/05, not meeting diagnostic criteria of KEE, possible due to post-renal (obstructive) etiology in setting of delayed Ponce placementPlan:Cont w/ indwelling Ponce catheter.No consideration for further voiding trials, giovanni as Ppt unwilling to take meds to treat BPH. 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 Related to Tobacco abuse Presently no exac.Ta sylvia no pulmonary medicines. Related to Chronic obstructive pulmonary disease, unspecified COPD type U. R. Per [facility] D /C summary.+ hx BPHCont Opnce cath. Related to Urinary retention Per previous records - neuropsychological testing [facility] of the [facility] [id number] indicated diagnostic Formulation of Major Neurocognitive disorder F10.26, most commonly related to either alcohol use or other psychoactive substance use. - Documents heavy drinking from 1970 until about 2009. [id number] in [place]. Nephew reported heavy drinking after returning from [place]. No current ETOH use reported. 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 MOCA 2020 - h vision), previous MOCA - . HCP is activated. Hx of resistance to care, self isolation, this has continued since admission to [facility].Cont supp care as allowed. Related to Dementia associated with other underlying disease with behavioral disturbance Ppt cantankerous. + anti social behavior which is his baseline. Ppt declines exam. Min response to ROS.Hx med non compliance. Is eating and drinking well. Cont to provide supportive care. Related to Depression, major, recurrent, mild Ppt now awake and al ert.No evidence of discomfort or distress.Monitor Related to Comfort measures only status Evidenced by gen mus jaja and temporal wasting. + scaphoid abd and prominent xyphoid process noted on exam 12/18/22.Ppt is eating and drinking. Add hi pro supp. Related to Protein-calorie malnutrition, moderate Ppt cantankerous. + anti social behavior which is his baseline. Ppt declines exam. Min response to ROS.Hx med non compliance. Is eating and drinking well. Cont to provide supportive care. Related to Depression, major, recurrent, mild All prior meds were d/c'd @ D/C drom [facility] and [facility]O4 and Lorazepam ordered.They were supposed to be prn.They are now written as prn.Will follow Ppt Related to Comfort measures only status Ppt was awake and al ert upon admission.In reviewing meds w/ g Ppt comfort meds which were to be prn have been given scheduled and likely the etiol of obtundation.Meds have been written to reflect prn status.Monitor response Related to Obtunded Galo-30-2023 Speaks of wishing to stay in his apartment and . Admixes this with paranoid ideations about people trying to kill him. Does not follow logic of laving a situation in which he perceives he will be killed. Made many statements about being ready to etc. -[facility] eval-Ideally a better environment even if he is in fact towards EOL, rather than him starving himself to in his apt Related to Passive suicidal ideations While the nature of the interactions between building mgr and pt are not knowable, the patient's statements are clearly paranoid. The exact nature of his underlying psychiatric diagnosis is not entirely clear to me Related to Paranoia Unable to care for s elf and limited insight. Will not allow systems of care to be put in place to support him-Section 12 to [facility] Related to Self neglect - not currently on D M medications, does not check his sugars, formerly was treated with glipizide in the past and improvement in sugars were noted previously-01/2022 A1C 5.1%; (Goal A1C < 8%); 01/2021 - 5.3%; 06/2020 - 5.5%- DM eye exam 11/[address] Wheatley indicating no DM retinopathy, do not have updated notes since then; was able to see optometry today for visit due to a cancellation, needs outside referral for further evaluation for opthalmology for cataracts and more detailed examination- following with [facility]iatry ([place] and [facility] podiatry)- not able to provide urine sample - previously + microalbuminuria, no longer lisinopril - See CKD3 - N 18.3- his appetite has stabilized a bit, was having weight loss and was to have [facility] with [facility]; gets 2 meals/day provided by nephew - see hyperlipidemia- ppt has dementia and is not motivated to work on his health, exercise- continue to follow to the extent that is in line with goals of care Related to Type 2 diabetes mellitus with chronic kidney disease, without long-term current use of insulin, unspecified CKD stage - vaccines UTD- [facility] as scheduled endoscopy/colonoscopy for November 2021 but did not happen - nephew working on getting r/s- f/u lung CT scan scheduled- ppt [facility] - sees podiatry, does not want dental since has no teeth, does not want hearing- seen by [facility] today and will refer out to opthalmology- care team to continue to follow Related to Encounter for general adult medical examination w/o abnormal findings - per CT chest [place] th e [place] 01/2022- RLL 8.7 mm nodule larger than previous - repeat chest CT in 2-3 months- LLL 11.6 mm and 9.4 mm solid nodules have decreased in size- ppt has repeat CT scheduled through [place]- [place] , long time smoker- nephew will keep team updated Related to Pulmonary nodules - CT chest at [place] 01/24 022 indicating mild/mod pulm emphysema- continues to smoke cigarettes (since age 15) and does not want to stop; 2-3 pack/wk as supplied by ppt's nephew but nephew reports that he does not smoke the whole cigarette- does not use his inhalers and refuses to; has nebulizer in home which nephew can do - Does not want to be seen by pulmonary. But does appear that [place] has referred him to pulm at [facility] for August and nephew will take him. - Goes outside to smoke multiple times per day. States that does not have significant SOB when going down the stairs if the elevator is broken. Did not note significant SOB while in the clinic ambulating > 100 feet.Ppt reports no issues with respiratory status that he feels is a concern. Seems stable today as compared to previous visits. Ppt made it through COVID19 infection in October 2021.- not on supplemental O2 nor if needed would he use properly or know how to use- continue to offer support and monitor. Related to Pulmonary emphysema, unspecified emphysema type -Previous psychologi oleg evaluation 08/2017 indicated not only Major neurocognitive disorder with behavioral disturbance d/t multifactorial variants, but the likelihood of dementia. - MOCA 2020 - (but does have some difficulty with vision), previous MOCA - . HCP is activated. Not able to cooperate with MOCA. -Is resistant to care, isolates, does not allow anyone other than nephew into his apartment. Has locked out caregivers in the past if they leave to do laundry or put out the garbage. - nephew gives him his medications, provides his meals. Andrea has poor judgment, insight. Does not take his inhalers. - we had reviewed moving into [facility] or [facility] since care team has had concerns about his home safety since nephbill has caregiver burden and there are no other family members available for andrea. Now that andrea's diarrhea has decreased in frequency and medications decreased, nephew reports is better able to manage him in the home. Nephew feels for now that andrea is doing ok in his current living situation.- care team to continue to follow and SW to also work on this Related to Dementia associated with other underlying disease with behavioral disturbance - per previous recor ds - neuropsychological testing performed [facility] of the [facility] [id number] indicated diagnostic Formulation of Major Neurocognitive disorder F10.26, most commonly related to either alcohol use or other psychoactive substance use. - Documents heavy drinking from 1970 until about 2009. [id number] in [place]. Nephew reported heavy drinking after returning from [place]. No current ETOH use reported. 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 8; stopped lisinopril due to worsening renal function, he also is not a good hydrater-10/2021 at [facility] GFR 46, Cr 1.6-04/2021 GFR 43, Cr 1.55- 01/2021 GFR 46, Cr 1.49- avoid NSAIDs, nephrotoxics- continue to monitor periodically, he agreed to come back for labs next week with nephew - see also hypertensive CKD with stage 1-4 CKD, I12.9 Related to Stage 3b chronic kidney disease - Goal BP less than 140/90 but will allow up to 150/90 due to high falls risk-on amlodipine (formerly on lisinopril but cut back due to renal function and not taking medications regularly) - nephew has been trying to make sure that he takes his medications- andrea still smokes and has no wish to stop- inconsistent diet but does get 2 meals/day, does not exercise due to issues with dementia/musculoskeletal isues - see CKD 3 - N18.3- follow periodically Related to Hypertensive renal disease, stage 1 through stage 4 or unspecified chronic kidney disease - he is up about 7 l bs since his last visit to 135 lbs, seems a bit more stable- nephew had reported that frequent diarrhea had improved; weight 07/2021 = 165 lbs - nephew provides 2 meals/day since ppt unable to prepare meals on his own- on examination, sunken abdomen, prominent spinous process and xyphoid process, muscle wasting, lack of body fat, thin legs - has known lung nodule that needs f/u through [place] and had also been set up for endo/colonoscopy through [place] but was not yet completed. - nutrition also following; ppt is not often agreeable to supplementation- has known dx pulm emphysema Related to Protein-calorie malnutrition, moderate - see DM2 with diabe tic CKD, E11.22-follows with [place] podiatry, saw recently. - Upon examination, has keratotic toenails, dependent rubor, decreased hair growth on BLE, continues to smoke; does not walk very far - no reports of claudication- nephew inspects skin when ppt allows- following with podiatry regularly, can see at [place] and at [place] Related to Type 2 diabetes mellitus with diabetic peripheral angiopathy without gangrene, unspecified whether oysterman insulin use - due to DM, goal LD L < 70- he is now off of statin for the last few months since he is an inconsistent medication taker and has been losing weight, has dementia- has other medical issues ongoing-can check periodically depending on how his other medical issues are progressing Related to Hyperlipidemia LDL goal <70 - High PHQ at [facility] in 2015. Not able to obtain updated PHQ9 today due to cooperation, distractible. He does seem in better spirits though as compared to previous visits. - not on anti-depressant or behavior stabilization medications, is an inconsistent taker of medications. Counseling would not work, has dementia. Also [facility]. - Responds well to his nephew but does not allow any other people into his apartment or allow to help. - continue to offer support as able to from [facility] team. Nephew sees ppt 2x/day to bring him food and check in. Related to Depression, major, recurrent, mild - [place] , n ot on treatment for this - goes out of his apartment to smoke cigarettes, isolates often at other times but likes where he lives. Does not let others into his apartment. Does not want to move but we have had concerns for ppt's safety. Nephew seems to have him well managed for now within the limitations that the ppt sets on him.- care team to continue to offer support; nephew assists him with outings, appts, meals- in the past, ppt has stated just wants to be left alone and alone but has not mentioned this recently to nephew directly Related to Chronic post-traumatic stress disorder (PTSD) - continues but has improved recently with medication deprescribing - nephew comes by [facility]'s home 2x/day to give him medications, provide him with food, attempt to help him clean up from his incontinence (which has been less frequent)- per previous paperwork, appears that this has been an issue going back to at least 2014 - care team has worked with [facility]'s nephew on other options for housing and supervision, but ppt does not allow anyone else into his apartment and ppt would like to stay where he is Related to Noncompliance w/medication treatment due to intermit use of medication -Right eye vision lo ss from before enrollment with [facility] 08/2014. - OD> OS Was to have cataract surgery in 2020 but just prior to the time was having respiratory exacerbation and was not approved for surgery. His respiratory status is a bit more stable, nephew would have to help with eye drops if/when this occurs. 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 - due to DM, goal LD L < 70- will discontinue statin at this time since ppt has not been taking medications regularly, is losing weight unintentionally, has other medical issues ongoing- trying to minimize medication burden Related to Hyperlipidemia LDL goal <70 - will get updated f iron vaccine soon, nephew will think about COVID19 booster, will get 2nd Shingrix vaccine in future- [place] has scheduled endoscopy/colonoscopy for November but did not happen - nephew working on getting r/s- he does not want low dose lung CT scan- andrea has some of his care through the [place] - seeing podiatry tomorrow, does not want dental since has no teeth, does not want hearing- needs cataract surgery but has not been stable for surgery - care team to continue to follow Related to Encounter for general adult medical examination w/o abnormal findings - continues to smoke cigarettes (since age 15) and does not want to stop; 2 pack/wk as supplied by ppt's nephew- does not use his inhalers and refuses to; will reorder a PRN albuterol inhaler since cannot tolerate the other modality of albuterol; has nebulizer in home which nephew can do - Does not want to be seen by pulmonary. - Goes outside to smoke multiple times per day but his room is right near the elevator to go out, therefore not ambulating significant distances. - not on supplemental O2 nor if needed would he use properly or know how to use- continue to offer support and monitor. Ppt reports no issues with respiratory status that he feels is a concern. Seems stable today as compared to previous visits. Ppt made it through COVID19 infection in October. Related to Chronic obstructive pulmonary disease, unspecified COPD type -Previous psychologi oleg evaluation 08/2017 indicated not only Major neurocognitive disorder with behavioral disturbance d/t multifactorial variants, but the likelihood of dementia. - MOCA 2020 - (but does have some difficulty with vision), previous MOCA - . HCP is activated. -Is resistant to care, isolates, does not allow anyone other than nephew into his apartment. Has locked out caregivers in the past if they leave to do laundry or put out the garbage. - nephew gives him his medications, provides his meals. Ppt has poor judgment, insight. Does not take his inhalers. - we have been talking about moving into [place] or [facility] since care team has concerns about his home safety since nephew has caregiver burden and may no longer want to be involved in ppt's care. There are no other family members available for ppt.- care team to continue to follow and SW to also work on this Related to Dementia in other diseases classified elsewhere with behavioral disturbance - per previous recor ds - neuropsychological [facility] of the [facility] [id number] indicated diagnostic Formulation of Major Neurocognitive disorder F10.26, most commonly related to either alcohol use or other psychoactive substance use. - Documents heavy drinking from 1970 until about 2009. Bath [id number] in [place]. Nephew reported heavy drinking after returning from [place]. No current ETOH use reported. 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 Not able to obtain PHQ9 today due to cooperation, distractible. - not on anti-depressant or behavior stabilization medications, does not take medications consistently. Counseling would not work, has dementia. Also has VA assistance available. - Responds well to his nephew but does not allow any other people into his apartment or allow to help. - continue to offer support as able to from [facility] team. Nephew sees ppt 2x/day now to bring him food and check in. Related to Depression, major, recurrent, mild - [place] , boris ot on treatment for this - goes out of his apartment to smoke cigarettes, isolates often at other times but likes where he lives. Does not let others into his apartment. Does not want to move but we have concerns for ppt's safety. - care team to continue to offer support; nephew assists him with outings, appts, meals, nephew has caregiver burden - ppt states just wants to be left alone and alone Related to Chronic post-traumatic stress disorder (PTSD) -10/2021 at [facility] GFR 46, Cr 1.6-04/2021 GFR 43, Cr 1.55- 01/2021 GFR 46, Cr 1.49- 06/2020 GFR 47, Cr 1.45- avoid NSAIDs, nephrotoxics- continue to monitor periodically, he agreed to labs today - see also hypertensive CKD with stage 1-4 CKD, I12.9 Related to Stage 3a chronic kidney disease - Goal BP less than 140/90 but will allow up to 150/90 due to high falls risk- on amlodipine and lisinopril - nephew trying to make sure that he takes his medications regularly- ppt still smokes and has no wish to stop- inconsistent diet, does not exercise - see CKD 3 - N18.3- follow periodically Related to Hypertensive chronic kidney disease with stage 1 through stage 4 chronic kidney disease, or unspecified chronic kidney disease - continues- unclear if related to diet; [facility] also [facility] occur - nephew trying to get this r/s- is incontinent multiple times and nephew having to go over to apt multiple times per day to assist with care, cleaning up apartment- also losing weight - care team to continue to follow, ppt does not allow in outside help Related to Diarrhea, unspecified type -Right eye vision lo ss from before enrollment with [facility] 08/2014. - OD> OS Was to have cataract surgery in 2020 but just prior to the time was having respiratory exacerbation and was not approved for surgery. Now has other medical issues going on that would preclude him from having this surgery. His respiratory status is a bit more stable, nephew would have to help with eye drops if/when this occurs. 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 Ppt also reporting some swallow difficulty but would not cooperate with a swallow evaluation.- updated scan would be completed through [facility] in next few weeks and nephew will alert us of updates- nutrition also following; ppt is not often agreeable to supplementation Related to Protein-calorie malnutrition, moderate - see DM2 with diabe tic CKD, E11.22-did not allow examination of feet today; [facility]. Nephew reports toenails are very overgrown. In previous visit, this health science writer has noted keratotic toenails, mild dependent rubor, decreased hair growth on BLE, continues to smoke; does not walk very far - no reports of claudication- ppt is not open to accepting care/help, nephew inspects skin when he can- following with podiatry regularly, most recently at [place] Related to Type 2 diabetes mellitus with diabetic peripheral angiopathy without gangrene, unspecified whether longterm insulin use - not on DM medicati ons, does not check his sugars- DM eye exam 11/[address] Wheatley indicating no DM retinopathy, do not have updated notes since then; also follows at [place]- following with podiatry (Dr. Mccullough and [place])- not able to provide urine sample - previously + microalbuminuria, on lisinopril 5 mg daily- See CKD3 - N 18.3- A1Cs 01/2021 - 5.3%; 06/2020 - 5.5%; 2019 - <6%; Goal A1C less than 8%; had refused labs last visit - agreed to labs today- having issues with his appetite, [facility] and is also losing weight, may have malignancy - see hyperlipidemia- andrea has dementia and is not motivated to work on his health, exercise, may need to head towards a more palliative plan of care Related to Type 2 diabetes mellitus with chronic kidney disease, without long-term current use of insulin, unspecified CKD stage -discussed with neph ew again today; nephew has extreme caregiver burden and is unsure if he can continue at his current level; [facility] does not allow anyone else in the home to help the ppt- will work on this with nephew. - nephew may want to walk away from being HCP. Ppt has no secondary HCP nor does he have other family that he is in contact with. Related to Advanced care planning/counseling discussion - continues- nephew comes by [facility]'s home 2x/day to give him medications, provide him with food, attempt to help him clean up from his incontinence; ppt is not able to cooperate for his inhaler use and nephew would like pharmacy to stop sending the inhalers- per previous paperwork, appears that this has been an issue going back to at least 2014 - care team working with andrea's nephew on other options for housing and supervision, but ppt does not allow anyone else into his apartment Related to Noncompliance w/medication treatment due to intermit use of medication - continues to smoke cigarettes (since age 15) and does not want to stop; has cut back to a few packs per week- he does have some maintenance medications of PRN HFA inhaler but does not use consistently and this appears to have been a historic issue. Not on home O2. Has nebulizer now in the home.- Does not want to be seen by pulmonary. Nephew reports that when takes inhalers does better with breathing. - Goes outside to smoke multiple times per day but his room is right near the elevator to go out, therefore not ambulating significant distances. Previously the elevator was broken and ppt reporting that he was using the stairs. - continue to offer support and monitor. Ppt reports no issues with respiratory status that he feels is a concern. Related to Chronic obstructive pulmonary disease, unspecified COPD type -Previous psychologi oleg evaluation 08/2017 indicated not only Major neurocognitive disorder with behavioral disturbance d/t multifactorial variants, but the likelihood of dementia. - MOCA 2020 - (but does have some difficulty with vision), previous MOCA - . HCP is activated. -Can be resistant to care, isolates, does not services into his apartment, has locked out caregivers if they leave to do laundry or put out the garbage. Nephew is the only main person that he allows in his home and allow to help clean apartment, help with laundry. Has now been allowing ppt's niece in to help clean.- does not consistently take his medications but nephew tries to get him to take, ppt picks and chooses what he wants to take- discussed concerns about ppt safety, allowing help and nephew will look into [facility] but unclear since there is a long wait list and ppt is resistant. Ppt does not want to move into an [facility], would not necessarily be appropriate for supportive housing. - care team to continue to follow Related to Dementia in other diseases classified elsewhere with behavioral disturbance - per previous recor ds - neuropsychological testing [facility] of the [facility] [id number] indicated diagnostic Formulation of Major Neurocognitive disorder F10.26, most commonly related to either alcohol use or other psychoactive substance use. - Documents heavy drinking from 1970 until about 2009. Bath [id number] in [place]. Nephew reported heavy drinking after returning from [place]. No current ETOH use reported. 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 Not able to obtain PHQ9 today due to cooperation, distractible. - not on anti-depressant or behavior stabilization medications, does not take medications consistently anyways. Counseling would not work, has dementia. Also has VA assistance available. - Responds well to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 well enough without dentures. Will continue to support and monitor. Related to Complete loss of teeth, unspecified cause, unspecified class Ppt has a history of not allowing providers access for evaluations, Lab personnel for drawing blood, obtaining urine. Last urine evaluation was in 2014. Order has been placed for evaluation if a sample can be obtained. Related to Proteinuria, unspecified Last vitamin D value from 01/2017 was 15. [facility] provider recently re-prescribed Vitamin D-3 1000 IU daily. Labs monitored when ppt allows access. Related to Vitamin D deficiency, unspecified Ppt is able to parti cipate in the visit and exam appropriately. Behaviors tend toward isolation. No longer consuming alcohol per family report. No aggressive behaviors reported by staff at apartment building or family. Not managed with any medications. Will continue to monitor. Related to Alcohol dependence with alcohol-induced persisting dementia Weight at enrollment 08/2014 was 189 BMI of 32.44. weight was 125 BMI of 20.83. Weight 08/2017 was 155.6 BMI of 25.89. Today weight is 195 BMI of 32.45. Getting more meals with encouragement from family. Will encourage a little more attention to types and volume of food intake as able. Related to Obesity, unspecified No report of pain by the ppt. Did have some falls in the past 6 months reproted by family-no injuries reported. Does not have any NSAIDs or other pain relievers on med profile. Will continue to monitor. Related to Unspecified osteoarthritis, unspecified site Ppt is a [place] ambika. Has bee seen by Neuropsych for evaluation. No medications on profile to manage behaviors. DOes vascillate bewteen accepting assistance for ADLs, healthcare. CUrrently his nephew Matthew has been able to bringhim to appointments, etc. Will contniune to monitor for changes. Related to Post-traumatic stress disorder, chronic Has been evaluated f or neuropsych testing that confirms mixed diagnoses of PTSD Related to Major depressive disorder, recurrent, unspecified Ppt does not have a C-PAP machine. No recent sleep study. ppt not open to obtaining this evaluation at this time. Ppt continues to smoke a few cigarettes daily. Will continue to monitor for changes. Related to Obstructive sleep apnea (adult) (pediatric) Blood presure readin gs slightly elevated systolically. Will attempt to obtain [facility] office visit notes to determine what other medication ppt is taking. 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 Does continue to smoke 1-2 cigarettes daily. Appears to be winded more quickly, but does recover in less than 5 minutes. Related to Chronic obstructive pulmonary disease, unspecified combination steroid/af cream Rel ated to Contact dermatitis and other eczema, unspecified cause cclose follow-up Related to Depr essive disorder, not elsewhere classified I have reviewed all his inhalers with him and given him a written listI have resent all the inhalers to pharmHe was given an updraft today in clinic-We will get BNP to exclude a component of heart failure although I sincerely doubt it by exam-I would like to see him sooner however he is not particularly amenable to coming in on a regular basis Related to Chronic airway obstruction, not elsewhere classified Counseling as noted aboveOffered meds Related to Tobacco use disorder AF cream Related to [place] tophytosis of foot Increase the lisinop ril to 20mgWill need labs 2 wekes laterMay need>1 agent Related to Unspecified essential hypertension MicroalbCheck lipids PodaitryOphthoNot amenable to glucometer at this time Related to Diabetes mellitus without mention of complication, type II or unspecified type, not stated as uncontrolled Dental for ? dentures and oral s creening Related to Other loss of teeth Rehab will screen Related to Abn ormality of gait Not amenablke to cou nseling or Pharmacotherapy now Related to Depressive disorder, not elsewhere classified Control BPLik[employer] inc rease ACECheck microalb Related to Chronic kidney disease, Stage II (mild) Ophtho Related to Unspe cified cataract PrevnarZoster immuni zationDeclines JOSETTE, c-scopeWill consider screening CXR vs CT given smoking hxHold off AAA screening for now Related to Routine Medical Exam Assessments Type Assessment Date No Information Goals Health Concern Goal Type Priority Status Date Immanuel is at risk for elopement secondary to dementia Immanuel will not wander from PACE center or home environment Patient Goal Discontinued 3 Immanuel has chronic pain related to arthritis right knee Immanuel will report right knee pain remains at tolerable level through next review August 2023 Patient Goal Continued 2 Immanuel is at risk for sudden secondary to COPD, unknown disease related to poor follow through Immanuel will not be admitted to the emergency room or hospital with acute life-threatening events through next review August 2023 Patient Goal Discontinued 2 Self care deficit due to history of refusing assistance with ADLs, increased incidences of bowel incontinence, presence of ponce catheter, depression, post traumatic stress disorder (PTSD), dementia, Immanuel's hygiene needs will be met with assistance through next review August 2023 Patient Goal Complete Immanuel has potential for complications related to Chronic Obstructive Pulmonary Disease (COPD). Immanuel will not be hospitalized due to complications of COPD through next review August 2023 Patient Goal Continued 9 Immanuel is at risk for falls related to poor gait, poor safety awareness, history of falls Immanuel will not experience any falls or fall related injuries through next review August 2023 Patient Goal Continued 9 Immanuel is dependent with self care related to depression, diabetes, chronic obstructive pulmonary disease, shortness of breath with exertion, poorly controlled hypertension, chronic pain, presence of ponce catheter, bowel incontinence, and medication noncompliance. Immanuel's personal care needs will be met by SNF staff Patient Goal Discontinued 6
--- OUTSIDE RECORDS SUMMARY | 2025-03-04 13:56 | XMS_ITS | Clinical Summary ---
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 Name Role Phone Unavailable Primary Care Provider [...] older (1 - 1-dose 75+ series) 2021 Dental Oral Exam 04/02/2024 09/30/2023 DTaP/Tdap/Td Vaccines (3 - Td or Tdap) 09/08/2024 09/08/2014, 12/10/2011 Tobacco Screening 09/29/2024 09/30/2023 COVID-19 Vaccine ( season) 2025 04/01/2022, 05/04/2021, 08/03/2020, Additional history exists Influenza Vaccine (#1) 2025 2, 02/22/2021, 03/01/2019, Additional history exists Hepatitis A Vaccines Completed 08/02/2012, 01/13/2012, 12/10/2011, [...] patient's age to complete this topic Meningococcal B Vaccine Aged Out No l onger eligible based on patient's age to complete [...] Most Recently Relevant to Health Maintenance Insurance [facility] [employer] STAND ADULT
[2025-03-04 13:57] LABS: MANUAL DIFF FLAG NO
[2025-03-04 14:03] LABS: Hematocrit 33.2 % (42.0-52.0); Hemoglobin 10.3 g/dl (14.0-18.0); Imm Gran Abs Auto 0.06 X10*3/uL (0.00-0.03); Imm Gran Pct Auto 0.8 % (0.0-0.4); Lymphocytes Absolute Auto 0.8 X10*3/uL (1.2-4.9); Mean Corpuscular HGB Conc 31.0 g/dl (31.0-36.0); Mean Corpuscular Hemoglobin 28.6 pg (27.0-33.0); Mean Corpuscular Volume 92.2 fL (80.0-98.0); NRBC Abs Auto 0.000 X10*3/uL (0.0-0.012); NRBC Pct Auto 0.0 /100WBC (0.0-0.2); Platelet Count 282 X10*3/uL (160-400); Red Blood Count 3.60 X10*6/uL (4.60-5.80); White Blood Count 7.3 X10*3/uL (4.8-10.8)
[2025-03-04 14:23] LABS: Anion Gap 12 (12-20); Blood Urea Nitrogen 25 mg/dL (9-16); Calcium 9.1 mg/dL (8.4-10.2); Carbon Dioxide 26 mmol/L (22-29); Chloride 109 mmol/L (96-108); Estimated Glomerular Filt Rate 49; Potassium 4.4 mmol/L (3.3-5.1); Sodium 143 mmol/L (135-145)
== END 2025-03-04 13:53 | disposition home or self-care (01) ==
LOC: HO.HSH2E 13:52
PROVIDERS: Nurse Practitioner; Visit Provider Internal Medicine
DX: D64.9 Anemia, unspecified (principal); I10 Essential (primary) hypertension
CPT/HCPCS: 36415; 80048; 85025

== ENCOUNTER 2025-03-22 05:51 | Outpatient (REF) | payer MEDICARE, MEDICAID, SELFPAY ==
[2025-03-22 06:22] LABS: Anion Gap 12 (12-20); Blood Urea Nitrogen 23 mg/dL (9-16); Calcium 9.1 mg/dL (8.4-10.2); Carbon Dioxide 28 mmol/L (22-29); Chloride 109 mmol/L (96-108); Cholesterol 142 mg/dL (<200); Estimated Glomerular Filt Rate 47; HDL Cholesterol 43 mg/dL (>40); Magnesium 2.1 mg/dL (1.6-2.6); Potassium 4.4 mmol/L (3.3-5.1); Sodium 145 mmol/L (135-145); Triglycerides 106 mg/dL (<150)
== END 2025-03-22 05:52 | disposition home or self-care (01) ==
LOC: HO.HSH2W 05:51
PROVIDERS: Visit Provider Internal Medicine
DX: I12.9 Hypertensive chronic kidney disease with stage 1 through stage 4 chronic kidney disease, or unspecified chronic kidney disease (principal); N18.30 Chronic kidney disease, stage 3 unspecified; E78.5 Hyperlipidemia, unspecified
CPT/HCPCS: 36415; 80048; 80061; 83735